=== PATIENT | male | born 1985 | race Caucasian/White ===

== ENCOUNTER 2020-10-03 15:33 | Outpatient (REF) | payer OTHER, SELFPAY ==
[2020-10-03 15:57] LABS: MANUAL DIFF FLAG NO
[2020-10-03 16:04] LABS: Basophils Absolute Auto 0.1 X10*3/uL (0.0-0.2); Basophils Percent Auto 1.1 % (0-2); Eosinophils Absolute Auto 0.1 X10*3/uL (0.0-0.4); Eosinophils Percent Auto 1.8 % (0-4); Hematocrit 43.4 % (42-52); Hemoglobin 14.7 g/dl (14.0-18.0); Imm Gran Abs Auto 0.01 X10*3/uL (0.00-0.03); Imm Gran Pct Auto 0.2 % (0.0-0.4); Lymphocytes Absolute Auto 1.6 X10*3/uL (1.2-4.9); Lymphocytes Percent Auto 35.8 % (20-40); Mean Corpuscular HGB Conc 33.9 g/dl (31.0-36.0); Mean Corpuscular Hemoglobin 33.3 pg (27.0-33.0); Mean Corpuscular Volume 98.2 fL (80-98); Mean Platelet Volume 10.8 fL (9.4-12.4); Monocytes Absolute Auto 0.5 X10*3/uL (0.1-1.2); Neutrophils Absolute Auto 2.2 X10*3/uL (2.0-8.3); Neutrophils Percent Auto 50.1 % (45-73); Platelet Count 192 X10*3/uL (160-400); Red Blood Count 4.42 X10*6/uL (4.60-5.80); Red Cell Distribution Width 12.9 % (11.0-16.0); White Blood Count 4.4 X10*3/uL (4.8-10.8)
[2020-10-03 16:26] LABS: Alanine Aminotransferase 14 U/L (0-40); Albumin Level 3.7 g/dL (3.5-5.0); Alkaline Phosphatase 68 U/L (39-117); Anion Gap 9 (12-20); Aspartate Amino Transferase 16 U/L (5-37); Bilirubin Total 0.5 mg/dL (0.0-1.0); Blood Urea Nitrogen 14 mg/dL (9-16); Calcium 8.4 mg/dL (8.4-10.2); Carbon Dioxide 32 mmol/L (22-29); Chloride 103 mmol/L (96-108); Cholesterol 168 mg/dL; Estimated Glomerular Filt Rate > 60; Glucose Fasting 82 mg/dL (60-99); HDL Cholesterol 39 mg/dL; LDL Cholesterol Calculated 111 mg/dl; Potassium 4.1 mmol/l (3.3-5.1); Sodium 140 mmol/L (135-145); Total Protein 6.7 g/dL (6.5-8.0); Triglycerides 90 mg/dL
[2020-10-03 16:44] LABS: TSH reflex Free T4 1.35 mIU/mL (0.32-4.0)
[2020-10-03 17:33] LABS: Glucose Urine UA NEG (NEG); Leukocyte Esterase Urine NEG (NEG); Nitrite Urine NEG (NEG); Specific Gravity - Urine >= 1.030 (1.005-1.025); Urine Blood NEG (NEG); Urine Ketones 5 MG/DL (NEG); Urine Protein NEG (NEG-TRACE)
[2020-10-03 17:36] LABS: Appearance Urine CLEAR; Color Urine YELLOW
== END 2020-10-03 15:34 | disposition home or self-care (01) ==
LOC: HO.LAB 15:33
PROVIDERS: PCP Internal Medicine; Visit Provider Internal Medicine
DX: Z00.00 Encounter for general adult medical examination without abnormal findings (principal); E55.9 Vitamin D deficiency, unspecified; E66.9 Obesity, unspecified; Z68.39 Body mass index [BMI] 39.0-39.9, adult
CPT/HCPCS: 36415; 80053; 80061; 81003; 84443; 85025

== ENCOUNTER 2021-09-25 15:32 | Outpatient (REF) | payer MEDICARE, MEDICAID, SELFPAY ==
[2021-09-25 15:51] LABS: MANUAL DIFF FLAG NO
[2021-09-25 16:20] LABS: Basophils Absolute Auto 0.1 X10*3/uL (0.0-0.2); Basophils Percent Auto 1.1 % (0-2); Eosinophils Absolute Auto 0.1 X10*3/uL (0.0-0.4); Eosinophils Percent Auto 2.3 % (0-4); Hematocrit 40.8 % (42.0-52.0); Imm Gran Abs Auto 0.01 X10*3/uL (0.00-0.03); Imm Gran Pct Auto 0.2 % (0.0-0.4); Lymphocytes Absolute Auto 1.5 X10*3/uL (1.2-4.9); Lymphocytes Percent Auto 34.9 % (20-40); Mean Corpuscular HGB Conc 34.3 g/dl (31.0-36.0); Mean Corpuscular Hemoglobin 33.7 pg (27.0-33.0); Mean Corpuscular Volume 98.1 fL (80.0-98.0); Mean Platelet Volume 10.8 fL (9.4-12.4); Monocytes Absolute Auto 0.4 X10*3/uL (0.1-1.2); Monocytes Percent Auto 9.8 % (2-11); Neutrophils Absolute Auto 2.3 x10*3/uL (2.0-8.3); Neutrophils Percent Auto 51.7 % (45-73); Platelet Count 182 X10*3/uL (160-400); Red Blood Count 4.16 X10*6/uL (4.60-5.80); Red Cell Distribution Width 12.8 % (11.0-16.0); White Blood Count 4.4 X10*3/uL (4.8-10.8)
[2021-09-25 16:21] LABS: Appearance Urine CLEAR; Color Urine YELLOW; Glucose Urine UA NEG (NEG); Leukocyte Esterase Urine NEG (NEG); Nitrite Urine NEG (NEG); PH 5.5 (5.0-8.0); Specific Gravity - Urine >= 1.030 (1.005-1.025); Urine Blood NEG (NEG); Urine Ketones NEG (NEG); Urine Protein NEG (NEG-TRACE)
[2021-09-25 16:42] LABS: Alanine Aminotransferase 20 U/L (0-40); Albumin Level 3.7 g/dL (3.5-5.0); Alkaline Phosphatase 71 U/L (39-117); Anion Gap 9 (12-20); Aspartate Amino Transferase 19 U/L (5-37); Bilirubin Total 0.5 mg/dL (0.0-1.0); Blood Urea Nitrogen 17 mg/dL (9-16); Calcium 8.9 mg/dL (8.4-10.2); Carbon Dioxide 32 mmol/L (22-29); Chloride 105 mmol/L (96-108); Cholesterol 175 mg/dL; Estimated Glomerular Filt Rate > 60; Glucose Random 61 mg/dL (60-115); HDL Cholesterol 45 mg/dL; LDL Cholesterol Calculated 96 mg/dl; Potassium 4.1 mmol/L (3.3-5.1); Sodium 142 mmol/L (135-145); Total Protein 6.8 g/dL (6.5-8.0); Triglycerides 170 mg/dL
[2021-09-25 17:00] LABS: Erythrocyte Sedimentation Rate 16 MM/HR (0-15)
[2021-09-25 17:01] LABS: TSH reflex Free T4 1.95 uIU/mL (0.32-4.0); Vitamin D 25-OH Total 42.4 ng/mL (>30)
[2021-09-25 18:17] LABS: Bacteria Urine TRACE /LPF; RBC Urine 0 /HPF (0); Squamous Epithelial Cell Urine TRACE /LPF; WBC Urine 0 /HPF (0-4)
== END 2021-09-25 15:33 | disposition home or self-care (01) ==
LOC: HO.LAB 15:32
PROVIDERS: PCP Internal Medicine; Visit Provider Internal Medicine
DX: Z00.00 Encounter for general adult medical examination without abnormal findings (principal); E66.9 Obesity, unspecified; E78.5 Hyperlipidemia, unspecified; E55.9 Vitamin D deficiency, unspecified
CPT/HCPCS: 36415; 80053; 80061; 81001; 82306; 84443; 85025; 85652

== ENCOUNTER 2022-02-17 12:14 | Outpatient (REF) | payer MEDICARE, MEDICAID, SELFPAY ==
--- NOTE | ~2022-02-17 | XR_ITS ---
EXAMINATION: XR FOOT, LEFT CLINICAL INFORMATION: Left foot pain. COMPARISON: 04/10/2019. TECHNIQUE: AP, lateral, and oblique views of the left foot. FINDINGS: There is no evidence of acute fracture or dislocation of the left foot. Left foot joint spaces are maintained. There is a small calcaneal plantar spur present. No erosive changes are appreciated. There is some soft tissue swelling overlying the dorsum of the tarsal bones. There also appears to be some soft tissue swelling about the first toe. XR/XR foot LT min 3V IMPRESSION: Soft tissue swelling without underlying bony abnormality appreciated. Small plantar calcaneal spur.
[2022-02-17 12:52] LABS: MANUAL DIFF FLAG NO
[2022-02-17 13:19] LABS: Basophils Absolute Auto 0.1 X10*3/uL (0.0-0.2); Basophils Percent Auto 1.2 % (0-2); Eosinophils Absolute Auto 0.1 X10*3/uL (0.0-0.4); Eosinophils Percent Auto 2.6 % (0-4); Hematocrit 41.6 % (42.0-52.0); Hemoglobin 14.4 g/dl (14.0-18.0); Imm Gran Abs Auto 0.01 X10*3/uL (0.00-0.03); Imm Gran Pct Auto 0.2 % (0.0-0.4); Lymphocytes Absolute Auto 1.6 X10*3/uL (1.2-4.9); Lymphocytes Percent Auto 37.9 % (20-40); Mean Corpuscular HGB Conc 34.6 g/dl (31.0-36.0); Mean Corpuscular Volume 95.2 fL (80.0-98.0); Mean Platelet Volume 10.6 fL (9.4-12.4); Monocytes Absolute Auto 0.4 X10*3/uL (0.1-1.2); Monocytes Percent Auto 10.5 % (2-11); Neutrophils Percent Auto 47.6 % (45-73); Platelet Count 192 X10*3/uL (160-400); Red Blood Count 4.37 X10*6/uL (4.60-5.80); Red Cell Distribution Width 12.7 % (11.0-16.0); White Blood Count 4.2 X10*3/uL (4.8-10.8)
[2022-02-17 13:39] LABS: Appearance Urine CLEAR; Color Urine YELLOW; Glucose Urine UA NEG (NEG); Leukocyte Esterase Urine NEG (NEG); Nitrite Urine NEG (NEG); PH 7.5 (5.0-8.0); Specific Gravity - Urine 1.015 (1.005-1.025); Urine Blood NEG (NEG); Urine Ketones NEG (NEG); Urine Protein NEG (NEG-TRACE)
[2022-02-17 13:50] LABS: Uric Acid 6.8 mg/dL (3.4-7.0)
[2022-02-17 14:06] LABS: Alanine Aminotransferase 17 U/L (0-40); Albumin Level 3.5 g/dL (3.5-5.0); Alkaline Phosphatase 68 U/L (39-117); Anion Gap 12 (12-20); Aspartate Amino Transferase 24 U/L (5-37); Bilirubin Total 0.6 mg/dL (0.0-1.0); Blood Urea Nitrogen 9 mg/dL (9-16); Calcium 9.1 mg/dL (8.4-10.2); Carbon Dioxide 27 mmol/L (22-29); Chloride 106 mmol/L (96-108); Cholesterol 177 mg/dL; Estimated Glomerular Filt Rate > 60; Glucose Fasting 78 mg/dL (60-99); HDL Cholesterol 39 mg/dL; LDL Cholesterol Calculated 116 mg/dl; Potassium 4.6 mmol/L (3.3-5.1); Sodium 140 mmol/L (135-145); Total Protein 7.2 g/dL (6.5-8.0); Triglycerides 111 mg/dL
[2022-02-17 14:09] LABS: TSH reflex Free T4 2.33 uIU/mL (0.32-4.0); Vitamin D 25-OH Total 30.6 ng/mL (>30)
== END 2022-02-17 12:15 | disposition home or self-care (01) ==
LOC: HO.LAB 12:14
PROVIDERS: PCP Internal Medicine; Visit Provider Nurse Practitioner Family
DX: Z00.00 Encounter for general adult medical examination without abnormal findings (principal); M79.672 Pain in left foot; E66.9 Obesity, unspecified; E78.5 Hyperlipidemia, unspecified; E55.9 Vitamin D deficiency, unspecified
CPT/HCPCS: 36415; 73630; 80053; 80061; 81003; 82306; 84443; 84550; 85025

== ENCOUNTER 2023-08-07 09:31 | Outpatient (REF) | payer MEDICARE, MEDICAID, SELFPAY ==
[2023-08-07 09:41] LABS: MANUAL DIFF FLAG NO
[2023-08-07 10:11] LABS: Basophils Absolute Auto 0.1 X10*3/uL (0.0-0.2); Basophils Percent Auto 1.3 % (0-2); Eosinophils Absolute Auto 0.1 X10*3/uL (0.0-0.4); Eosinophils Percent Auto 2.3 % (0-4); Hematocrit 43.4 % (42.0-52.0); Hemoglobin 14.7 g/dl (14.0-18.0); Imm Gran Abs Auto 0.01 X10*3/uL (0.00-0.03); Imm Gran Pct Auto 0.3 % (0.0-0.4); Lymphocytes Absolute Auto 1.2 X10*3/uL (1.2-4.9); Lymphocytes Percent Auto 31.8 % (20-40); Mean Corpuscular HGB Conc 33.9 g/dl (31.0-36.0); Mean Corpuscular Hemoglobin 32.3 pg (27.0-33.0); Mean Corpuscular Volume 95.4 fL (80.0-98.0); Mean Platelet Volume 10.5 fL (9.4-12.4); Monocytes Absolute Auto 0.4 X10*3/uL (0.1-1.2); Monocytes Percent Auto 10.7 % (2-11); Neutrophils Absolute Auto 2.1 x10*3/uL (2.0-8.3); Neutrophils Percent Auto 53.6 % (45-73); Platelet Count 199 X10*3/uL (160-400); Red Blood Count 4.55 X10*6/uL (4.60-5.80); Red Cell Distribution Width 13.1 % (11.0-16.0); White Blood Count 3.8 X10*3/uL (4.8-10.8)
[2023-08-07 10:29] LABS: Alanine Aminotransferase 12 U/L (0-40); Albumin Level 3.8 g/dL (3.5-5.0); Alkaline Phosphatase 66 U/L (39-117); Anion Gap 10 (12-20); Aspartate Amino Transferase 18 U/L (5-37); Bilirubin Total 0.8 mg/dL (0.0-1.0); Blood Urea Nitrogen 15 mg/dL (9-16); Calcium 8.9 mg/dL (8.4-10.2); Carbon Dioxide 29 mmol/L (22-29); Chloride 104 mmol/L (96-108); Cholesterol 162 mg/dL (<200); Estimated Glomerular Filt Rate > 60; Glucose Fasting 91 mg/dL (60-99); HDL Cholesterol 43 mg/dL (>40); LDL Cholesterol Calculated 104 mg/dL (<100); Sodium 139 mmol/L (135-145); Total Protein 7.3 g/dL (6.5-8.0); Triglycerides 79 mg/dL (<150)
[2023-08-07 10:46] LABS: Vitamin D 25-OH Total 29.7 ng/mL (>30)
[2023-08-07 11:19] LABS: Appearance Urine Clear; Color Urine Yellow; Glucose Urine UA Negative (Negative); Leukocyte Esterase Urine Negative (Negative); Nitrite Urine Negative (Negative); Specific Gravity - Urine 1.015 (1.005-1.025); Urine Blood Negative (Negative); Urine Ketones Negative (Negative); Urine Protein Negative (Neg-Trace)
== END 2023-08-07 09:32 | disposition home or self-care (01) ==
LOC: HO.LAB 09:31
PROVIDERS: PCP Internal Medicine; Visit Provider Internal Medicine
DX: Z00.00 Encounter for general adult medical examination without abnormal findings (principal); E78.00 Pure hypercholesterolemia, unspecified; E66.9 Obesity, unspecified; R30.0 Dysuria; E55.9 Vitamin D deficiency, unspecified
CPT/HCPCS: 36415; 80053; 80061; 81003; 82306; 84443; 85025

== ENCOUNTER 2023-08-23 15:23 | Outpatient (AMB) | payer MEDICARE, MEDICAID, SELFPAY ==
--- NOTE | 2023-08-23 15:25 | MHC.PC.OV ---
Vital Signs 08/23/23 15:26 Height 5 ft Weight 164 lb BMI 32.0 BP 118/80 Blood Pressure Location Lt brachial Position Sitting Pulse Source Pulse Oximeter Oxygen Delivery Method Room Air Intake Visit Reasons: discuss anxiety Perianesthesia Manager Required: No Accompanied by: Self / Same As Patient Allergies No Known Allergies Allergy (Mild, Verified 07/25/24 17:22) NKA Medication List - Last Reconciled 08/23/23 by Royal Kearney MD diclofenac sodium 1% (Voltaren Arthritis Pain) 2 grams topical QID ibuprofen 600 mg PO Q6H PRN Tobacco use date assessed: 08/23/23 Dental Screening Dental Screen Date: 08/23/23 Did you have a dental visit in the last 12 months?: Yes Did you have a dental problem in the last 6 months where you did not have access to dental care?: No Was dental information given to patient?: Patient has dentist HPI discuss anxiety HPI Details Patient is brought in today by his mother for evaluation of his recent abdominal complaints Patient has reportedly been complaining of recurrent abdominal pain for the past few weeks He is unable to quantify his symptoms further although he keeps referring to his gallbladder, which his mother states he had removed years ago (at age 23) His mother states that he moves his bowels regularly so constipation is unlikely Patient is unable to clarify whether his symptoms are constant or intermittent and cannot elaborate as to whether there is anything he does, eats or drinks that either aggravate his symptoms or relieve his symptoms due to cognitive defects associated with his Down's syndrome His mother also feels that his anxiety seems to be acting up again lately and is wondering if his symptoms may be primarily due to his anxiety He used to take Sertraline and was doing well on Rx in the past but stopped taking them about 2 to 3 years ago when he felt that his anxiety was very well-controlled then He denies any nausea or vomiting Denies any fever, chest pains or SOB PFSH Medical History (Updated 07/26/24 @ 04:12 by Royal Kearney MD) Obesity (BMI 30-39.9) Anxiety Vitamin D deficiency Dyslipidemia Down's syndrome Surgical History H/O: knee surgery History of cholecystectomy Family History Father Medical history unknown Mother Colon cancer, Onset Age: 45 Social History Housing: House Alcohol intake: never Patient Tobacco Use Status: Never used Tobacco e-Cigarette/Vaping Use: Never Used Second Hand Smoke Exposure: No service: No Current occupational status: disabled Cognitive needs: Yes Hearing needs: No Vision needs: No Questionnaire PHQ-9 Over the last 2 weeks, how often have you been bothered by any of the following problems? 1. Little interest or pleasure in doing things: not at all 2. Feeling down, depressed, or hopeless: not at all 3. Trouble falling or staying asleep, or sleeping too much: not at all 4. Feeling tired or having little energy: not at all 5. Poor appetite or overeating: not at all 6. Feeling bad about yourself - or that you are a failure or have let yourself or your family down: not at all 7. Trouble concentrating on things, such as reading the newspaper or watching television: not at all 8. Moving or speaking so slowly that other people could have noticed. Or the opposite - being so fidgety or restless that you have been moving around a lot more than usual: not at all 9. Thoughts that you would be better off or of hurting yourself in some way: not at all Total score: 0 Depression Screening Interpretation: Negative Depression Screening Done: Yes 58014 - PHQ-9 Billing: Yes Source: Developed by Drs. Naun Ray, Katalina Nicole, Anup Franco and colleagues, with an educational jose from [employer]. Thrive Questionnaire Date Thrive assessed: 08/23/23 I am a: Patient What is your living situation today?: I have a steady place to live Within the past 12 months, did the food you bought not last and you didn't have the money to get more?: Never true Within the past 12 months, did you worry whether your food would run out before you got money to buy more?: Never true Do you have trouble paying for medicines?: No Do you have trouble getting transportation to medical appointments?: No Do you have trouble paying your heating and electricity bill?: No Do you have trouble taking care of your child, family member or friend?: No Do you have trouble with day-to-day activities such as bathing, preparing meals, shopping, managing finances, etc.?: No Are you currently unemployed and looking for a job?: No Are you interested in more education?: No Please select the resources that you would like help with: None Currently or been in a relationship where the following occur: no concerns reported AUDIT C Alcohol Use Questionnaire (AUDIT-C) 1. How often do you have a drink containing alcohol?: Never 2. How many drinks containing alcohol do you have on a typical day when you are drinking?: 1 or 2 (0) 3. How often do you have six or more drinks on one occasion?: Never Total Score: 0 Score Reviewed/Action Taken: Yes COLEEN-7 AMB Questionnaire COLEEN-7 Date COLEEN - 7 assessed: 08/23/23 Feeling nervous, anxious, or on edge: 0 = Not at all Not being able to stop or control worryin = Not at all Worrying too much about different things: 0 = Not at all Trouble relaxin = Not at all Being so restless that it is hard to sit still: 0 = Not at all Becoming easily annoyed or irritable: 0 = Not at all Feeling afraid as if something awful might happen: 0 = Not at all Total COLEEN-7 score (0-4 normal; 5-9 mild; 10-14 moderate; 15-21 severe): 0 Source: Developed by Drs. Naun Ray, Katalina Nicole, Anup Franco and colleagues, with an educational jose from [employer]. Review of Systems Const Denies chills, Denies fatigue, Denies fever(s) and Denies headache(s) ENT Denies dysphagia, Denies dizziness, Denies otalgia, Denies headache(s), Denies neck pain, Denies odynophagia and Denies sore throat Card Denies chest pain, Denies palpitations and Denies dyspnea Resp Denies chest congestion, Denies cough and Denies dyspnea GI Reports abdominal pain (on and off, per patient - he points to the RUQ and epigastric areas ), Denies constipation, Denies dysphagia, Denies heartburn, Denies diarrhea, Denies nausea, Denies odynophagia and Denies vomiting Denies dysuria, Denies nocturia and Denies urinary frequency Musc Denies back pain and Denies neck pain Neuro Denies dizziness and Denies headache(s) Psych Reports anxiety (increasing, per patient's mother) Endo Denies fatigue and Denies palpitations Physical exam (Primary Care) Vital Signs: Last Vital Signs BP 118/80 08/23/23 15:26 Oxygen Delivery Method Room Air 08/23/23 15:26 BMI result Body Mass Index 32.0 Tobacco/Smoking Status: Tobacco use Status Tobacco use date assessed 08/23/23 08/23/23 15:29 Patient Tobacco Use Status Never used Tobacco 08/23/23 15:29 PHQ-9: PHQ-9 Score PHQ-9: Total score 0 08/23/23 15:51 Depression Screening Interpretation: Negative Thrive Assessment: Date of Thrive Assessment Date Thrive assessed 08/23/23 08/23/23 15:29 Currently or been in a relationship where the following occur: no concerns reported Const General: no acute distress and alert HENMT Throat: Yes posterior oropharynx normal and Yes tonsils normal (no TP congestion) Neck Neck: Yes no lymphadenopathy and Yes supple Thyroid: Thyroid normal Resp Auscultation: clear to auscultation bilaterally, no rales and no wheezes Cardio Rate: regular rate Rhythm: regular rhythm Heart sounds: no murmurs GI Palpation (GI): Soft to palpation, nontender, no guarding, not rigid and No Rebound tenderness present Auscultation: normal bowel sounds General: Yes no CVA tenderness Back/Spine/Pelvis Back: no CVA tenderness Thoracic/Lumbar Spine: No lumbar spinal tenderness Skin Rashes: no rashes Extrem General: Yes no clubbing, cyanosis or edema Coding Level of Care Code Est Pt Level 3 (60067) Diagnoses Epigastric pain R10.13 Abdominal location: epigastric Anxiety F41.9
[2023-08-23 15:26] VITALS: BP 118/80; BMI 32.0
== END 2023-08-23 15:52 | disposition home or self-care (01) ==
PROVIDERS: PCP Internal Medicine; Visit Provider Internal Medicine
DX: R10.13 Epigastric pain (principal); F41.9 Anxiety disorder, unspecified
CPT/HCPCS: 99213

== ENCOUNTER 2023-08-23 15:56 | Outpatient (REF) | payer MEDICARE, MEDICAID, SELFPAY ==
--- NOTE | ~2023-08-23 | XR_ITS ---
EXAMINATION: XR ABDOMEN COMPLETE CLINICAL INDICATION: Unspecified abdominal pain. COMPARISON: CT abdomen and pelvis 12/24/2014. TECHNIQUE: 4 AP views, supine and upright, of the abdomen. Visualization limited due to body habitus. FINDINGS: Dextroscoliosis of the lumbar spine with degenerative changes. Surgical clips in the right upper quadrant of the abdomen. [id number]-[id number] amount of stool in the colon. Nonobstructive bowel gas pattern. No free intraperitoneal air appreciated. Grouped calcifications, largest 7 mm, in the left mid to lower abdomen, possibly overlying the lower pole of the left kidney on some images versus possibly extrarenal on other images. Limited visualization of the kidneys due to overlying bowel. XR/XR abdomen 3V IMPRESSION: Bdvgcojv-cl-[id number] amount of stool in the colon. Nonobstructive bowel gas pattern. Grouped calcifications, largest 7 mm, in the left mid to lower abdomen, possibly overlying the lower pole of the left kidney on some images versus possibly extrarenal on other images. CT scan could be considered for better visualization.
== END 2023-08-23 15:57 | disposition home or self-care (01) ==
LOC: HO.XRAY 15:56
PROVIDERS: PCP Internal Medicine; Visit Provider Internal Medicine
DX: R10.9 Unspecified abdominal pain (principal)
CPT/HCPCS: 74021

== ENCOUNTER 2023-09-04 14:39 | Emergency (ER) | payer MEDICARE, MEDICAID, SELFPAY ==
[2023-09-04] VITALS (9 sets, daily range): BP systolic 87–116; BP diastolic 37–73; PULSE 67–103; RESP 20; O2SAT 96–100; BMI 28.7
--- NOTE | ~2023-09-04 | XR_ITS ---
EXAMINATION: XR CHEST CLINICAL INFORMATION: Weakness COMPARISON: None available. TECHNIQUE: Frontal view of the chest was obtained. FINDINGS: The cardiac silhouette is normal. There is mild diffuse bronchial wall thickening. There are no areas of consolidation. There are no pleural effusions or pneumothoraces. The bones and soft tissues are unremarkable for the patient's age. XR/XR chest 1V IMPRESSION: Bronchial wall thickening may be infectious and/or inflammatory in etiology.
--- NOTE | ~2023-09-04 | CT_ITS ---
EXAMINATION: CT ABDOMEN AND PELVIS WITH CONTRAST CLINICAL INFORMATION: Lower abdomen pain COMPARISON: Selected portions of a previous CT 12/24/14 TECHNIQUE: Multidetector volumetric images were obtained from the superior aspect of the liver through the pubic symphysis following administration 85 mL of Omnipaque 350 intravenous contrast. Sagittal and coronal reformatted images were obtained on the technologist's workstation. Oral contrast: No This CT examination was performed using dose optimization techniques as appropriate, variously including the following: *Automated exposure control *Adjustment of mA and/or kV according to patient size (this includes techniques or standardized protocols for targeted exams where dose is matched to indication/reason for exam; i.e. extremities or head) *Use of iterative reconstruction technique DLP: 588 mGy-cm FINDINGS: LUNG BASES: There is motion artifact. No consolidation or edema. LIVER, GALLBLADDER, AND BILIARY TREE: No suspicious focal liver lesion. There are surgical clips in the expected region of the gallbladder. There is no biliary dilation. PANCREAS: No suspicious abnormality. SPLEEN: Within normal limits ADRENAL GLANDS: No suspicious abnormality KIDNEYS AND URETERS: There is no dilation of the intrarenal collecting system. The nephrograms are symmetric. There is no suspicious mass. BLADDER: The bladder is not well-distended. The bladder wall is thickened. GASTROINTESTINAL TRACT: There is quaa-we-tvfmjegw thickening and minimal indistinctness involving the wall of the rectum. Some additional segments of the colon are either thickened or not well distended. There is no definite pneumatosis. No abscess. The stomach is moderately distended. No evidence of high-grade small bowel obstruction. ABDOMINAL WALL: No significant hernia is appreciated. LYMPH NODES: There are no measurably enlarged abdominal or pelvic lymph nodes. VASCULAR: There is no abdominal aortic aneurysm. The portal vein enhances. PELVIC VISCERA: The seminal vesicles are distended. Equivocal slight surrounding stranding. OSSEOUS STRUCTURES: No suspicious focal lesion CT/CT abdomen pelvis w IV con IMPRESSION: There is thickening in the wall of the rectum. Other segments of the colon are not well distended and wall thickening could also be present. There is no abscess or free intraperitoneal gas. No evidence of high-grade bowel obstruction. Pattern could reflect colitis or proctitis. The bladder wall is thickened. There is some distention and mild stranding surrounding the seminal vesicles. Only a few coronal images from 12/24/14 are available for comparison. Fleischner guidelines were followed.
[2023-09-04 15:25] LABS: MANUAL DIFF FLAG NO
[2023-09-04] MEDS: 0.9 % Sodium Chloride 1,000 ML 999 ML IV ×3 (15:25→19:19)
[2023-09-04 15:26] LABS: Basophils Absolute Auto 0.1 X10*3/uL (0.0-0.2); Basophils Percent Auto 0.8 % (0-2); Eosinophils Percent Auto 0.5 % (0-4); Hematocrit 44.4 % (42.0-52.0); Hemoglobin 15.3 g/dl (14.0-18.0); Imm Gran Abs Auto 0.05 X10*3/uL (0.00-0.03); Imm Gran Pct Auto 0.7 % (0.0-0.4); Lymphocytes Absolute Auto 1.4 X10*3/uL (1.2-4.9); Lymphocytes Percent Auto 18.7 % (20-40); Mean Corpuscular HGB Conc 34.5 g/dl (31.0-36.0); Mean Corpuscular Hemoglobin 32.8 pg (27.0-33.0); Mean Corpuscular Volume 95.1 fL (80.0-98.0); Mean Platelet Volume 10.3 fL (9.4-12.4); Monocytes Absolute Auto 0.5 X10*3/uL (0.1-1.2); Monocytes Percent Auto 6.7 % (2-11); Neutrophils Absolute Auto 5.4 x10*3/uL (2.0-8.3); Neutrophils Percent Auto 72.6 % (45-73); Platelet Count 188 X10*3/uL (160-400); Red Blood Count 4.67 X10*6/uL (4.60-5.80); White Blood Count 7.4 X10*3/uL (4.8-10.8)
[2023-09-04 16:14] LABS: Anion Gap 12 (12-20); Blood Urea Nitrogen 15 mg/dL (9-16); Calcium 8.6 mg/dL (8.4-10.2); Carbon Dioxide 28 mmol/L (22-29); Chloride 104 mmol/L (96-108); Creatinine Clr Calc Pharmacy 66.2; Estimated Glomerular Filt Rate 59; Glucose Random 146 mg/dL (60-115); Potassium 4.2 mmol/L (3.3-5.1); Sodium 140 mmol/L (135-145)
--- NOTE | 2023-09-04 16:16 | ECG_ITS ---
Test Reason : SYNCOPE Blood Pressure : / mmHG Vent. Rate : 076 BPM Atrial Rate : 076 BPM P-R Int : 132 ms QRS Dur : 094 ms QT Int : 384 ms P-R-T Axes : 049 020 032 degrees QTc Int : 432 ms Normal sinus rhythm Normal ECG When compared with ECG of 24-DEC-2014 14:03, No significant change was found Referred By: Spenser Lazcano Electronically Signed By:CLAU OSORIO MD
--- NOTE | 2023-09-04 16:40 | ED.GENADULT ---
HPI - General Adult General Chief complaint: Syncope Stated complaint: PASSED OUT 3X TODAY Time Seen by Provider: 09/04/23 16:02 Source: patient and family Mode of arrival: EMS History of Present Illness HPI narrative: Pt is a 37yo male with Down Syndrome who presents to the ED accompanied by his mother after syncopizing twice while on the toilet. Pt is a poor historian but mother appears reliable. Pt states he was sitting on the toilet straining trying to have a BM when he syncopized. Mother states she saw him fall over onto the sink next to him twice. Denies head strike or LOC. Pt complains of lower abdominal pain and questionable burning with urination. Notes a headache earlier that has since resolved. Denies n/v/d or constipation, SOB, or cp. Of note, the patient was seen by his PCP 2 weeks ago for abdominal pain, get an x-ray that showed moderate to large constipation. Related Data Previous Rx's Medication Instructions Recorded ibuprofen 600 mg tablet 600 mg PO Q6H PRN pain #20 tabs 03/05/22 diclofenac sodium 1 % topical gel 2 g topical QID #100 grams 03/16/22 (Voltaren Arthritis Pain) famotidine-Ca carb-mag hydrox 10 1 tab PO BID PRN abdominal pain 08/23/23 mg-800 mg-165 mg chewable tablet #60 tabs sertraline 20 mg/mL oral 40 mg (2 mL) PO DAILY 30 days #60 08/23/23 concentrate mL Allergies Allergy/AdvReac Type Severity Reaction Status Date / Time No Known Allergies Allergy Mild NKA Verified 09/04/23 15:11 Review of Systems Constitutional: Constitutional: Denies chills, Denies fever(s) and Denies headache(s) Eyes: Eyes: Denies change in vision and Reports eye discharge (runny eyes) ENT: Denies dizziness and Denies headache(s) Cardiovascular: Cardiovascular: Denies chest pain, Reports syncope (x2) and Denies dyspnea Respiratory: Respiratory: Denies cough and Denies dyspnea Gastrointestinal: Gastrointestinal: Reports abdominal pain, Denies constipation, Denies diarrhea, Denies nausea and Denies vomiting Genitourinary: Genitourinary: Reports difficulty urinating and Reports dysuria Neurologic: Denies dizziness, Reports syncope (x2) and Denies headache(s) [facility] Past Medical History Medical History Anxiety Down's syndrome Dyslipidemia Vitamin D deficiency Surgical History H/O: knee surgery History of cholecystectomy Family History Family History Father Medical history unknown Mother Colon cancer Social History Social History Housing: House Alcohol intake: never Patient Tobacco Use Status: Never used Tobacco Smoked in Last 30 Days: No Second Hand Smoke Exposure: No Use of substances other than those prescribed or required for medical reasons: No Advance Directives: No Advance Directives Information Provided: No service: No Current occupational status: disabled Cognitive needs: Yes Hearing needs: No Vision needs: No Physical Exam ED Vital Signs: Vital Signs - 24 hr 09/04/23 15:07 09/04/23 15:13 09/04/23 15:14 Pulse Rate 69 Respiratory Rate 20 Blood Pressure 88/37 L 87/45 L 88/37 L Pulse Oximetry 100 Oxygen Delivery Method Room Air 09/04/23 15:26 09/04/23 16:33 09/04/23 18:08 Pulse Rate 80 93 Respiratory Rate 20 Blood Pressure 87/51 L 109/47 L Pulse Oximetry 98 100 Oxygen Delivery Method Room Air Room Air 09/04/23 18:10 09/04/23 18:11 09/04/23 18:14 Pulse Rate 96 103 H 97 Respiratory Rate 20 Blood Pressure 116/73 98/58 L 98/58 L Pulse Oximetry 99 Oxygen Delivery Method Room Air BMI result Body Mass Index 28.7 Const General: cooperative, comfortable, no acute distress, alert and awake Orientation/consciousness: patient oriented x3 Limitations: other limitations (pt has down syndrome and is a poor historian) HENMT Head: Yes normal to inspection and Yes atraumatic Ears: hearing grossly normal bilaterally General nose exam: Normal external nose present Eyes General: appearance normal, both eyes and all related structures (tearing noted in both eyes) Eyelids: Yes eyelids normal Conjunctivae: conjunctivae normal Pupils: Equal, round and reactive pupils present Resp Effort & Inspection: normal respiratory effort, able to speak in complete sentences, no cough, not labored, no respiratory distress and no use of accessory muscles Auscultation: clear to auscultation bilaterally Cardio Rate: regular rate Rhythm: regular rhythm Heart sounds: S1 normal heart sound present and S2 normal heart sound present GI Inspection: Yes normal to inspection Palpation (GI): Soft to palpation and Tenderness to palpation present (GI) (tenderness most severe in suprapubic region) in the LLQ and suprapubicly Auscultation: Hypoactive bowel sounds present Neuro General: patient oriented x3, moves all extremities and no focal motor deficits Cranial nerves: Yes Equal, round and reactive pupils present Motor exam (neuro): 5/5 motor strength present throughout Course Reevaluation(s) Reevaluation #1: The patient's workup large unremarkable exception of orthostatics after 2 L of normal saline. Patient's blood pressure still slightly hypotensive to low normal. Will give 1 additional L of fluid and then do ambulation trial. Patient's CT scan shows questionable constipation but no other concerning abnormalities. His UA does not show any signs of UTI Time: 19:07 Reevaluation #2: Patient's most recent blood pressure 116/74, reports feeling much better, he is stable for discharge. Time: 20:11 Medications Administered Generic Name Dose Route Start Last Admin Trade Name Freq PRN Reason Stop Dose Admin Sodium Chloride 1,000 mls @ 999 mls/hr 09/04/23 19:15 09/04/23 19:19 Ns IV 09/04/23 20:15 999 mls/hr .Q1H1M RANDY Administration Discontinued Medications Generic Name Dose Route Start Last Admin Trade Name Freq PRN Reason Stop Dose Admin Sodium Chloride 1,000 mls @ 999 mls/hr 09/04/23 15:15 09/04/23 16:32 Ns IV 09/04/23 16:15 Infused .Q1H1M RANDY Infusion Sodium Chloride 1,000 mls @ 999 mls/hr 09/04/23 16:30 09/04/23 18:29 Ns IV 09/04/23 17:30 Infused .Q1H1M RANDY Infusion Iohexol 85 ml 09/04/23 17:00 09/04/23 17:00 Iohexol 350 Mg/Ml 100 Ml Infus..Btl IV 09/04/23 17:01 85 ml ONCE ONE Administration Medical Decision Making Medical Decision Making MDM Narrative: 37-year-old male past medical history significant for Down syndrome presents for evaluation after 2 syncopal episodes while on the toilet. Initially concerning for vasovagal syncope, however the patient was found to be hypotensive most recently 87/51. There has been no vomiting, diarrhea or reported decreased appetite. He has already received 1 L of IV fluid, a 2 L was ordered. His only complaint is lower abdominal pain, UA, CT scan of pelvis. Given the significant hypotension with syncopal episode will get a chest x-ray. Troponin pending. EKG is nonischemic. Differential Diagnosis Differential Diagnoses: The differential diagnosis associated with the presentation includes (vasovagal syncope, orthostatic hypotension, community aquired pna, uti, constipation) Admission/Observation Consideration of admission/observation: Escalation of care including admission/observation considered Multiple syncopal episodes with hypotension Lab Data MDM Lab Attestation statement: I reviewed the patient's lab results. No leukocytosis or anemia, normal platelet count. No electrolyte abnormalities, normal renal function. 09/04/23 15:20 09/04/23 15:46 Labs: Lab Results 09/04/23 09/04/23 09/04/23 Range/Units 15:20 15:46 16:28 WBC 7.4 (4.8-10.8) X10*3/uL RBC 4.67 (4.60-5.80) X10*6/uL Hgb 15.3 (14.0-18.0) g/dl Hct 44.4 (42.0-52.0) % MCV 95.1 (80.0-98.0) fL MCH 32.8 (27.0-33.0) pg MCHC 34.5 (31.0-36.0) g/dl RDW 13.0 (11.0-16.0) % Plt Count 188 (160-400) X10*3/uL MPV 10.3 (9.4-12.4) fL Immature Gran % (Auto) 0.7 H (0.0-0.4) % Neut % (Auto) 72.6 (45-73) % Lymph % (Auto) 18.7 L (20-40) % Hughes % (Auto) 6.7 (2-11) % Eos % (Auto) 0.5 (0-4) % Baso % (Auto) 0.8 (0-2) % Lymph # (Auto) 1.4 (1.2-4.9) X10*3/uL Hughes # (Auto) 0.5 (0.1-1.2) X10*3/uL Eos # (Auto) 0.0 (0.0-0.4) X10*3/uL Baso # (Auto) 0.1 (0.0-0.2) X10*3/uL Abs Immat Gran (auto) 0.05 H (0.00-0.03) X10*3/uL Absolute Neuts (auto) 5.4 (2.0-8.3) x10*3/uL Absolute Nucleated RBC 0.000 (0.0-0.012) X10*3/uL Nucleated RBC % (auto) 0.0 (0.0-0.2) /100WBC Sodium 140 (135-145) mmol/L Potassium 4.2 (3.3-5.1) mmol/L Chloride 104 (96-108) mmol/L Carbon Dioxide 28 (22-29) mmol/L Anion Gap 12 (12-20) BUN 15 (9-16) mg/dL Creatinine 1.36 (0.5-1.4) mg/dL Estim Creat Clear Calc 66.2 Estimated GFR 59 Random Glucose 146 H (60-115) mg/dL Calcium 8.6 (8.4-10.2) mg/dL Total Bilirubin 0.7 (0.0-1.0) mg/dL Direct Bilirubin 0.2 (0.0-0.5) mg/dL AST 20 (5-37) U/L ALT 16 (0-40) U/L Alkaline Phosphatase 71 (39-117) U/L Troponin I High Sens < 2.7 (<3.5-35.0) ng/L Total Protein 6.8 (6.5-8.0) g/dL Albumin 3.5 (3.5-5.0) g/dL Lipase 21 (8-78) U/L Urine Color Urine Appearance Urine pH (5.0-9.0) Ur Specific [place] (1.005-1.025) Urine Protein (Neg-Trace) mg/dL Urine Glucose (UA) (Negative) mg/dL Urine Ketones (Negative) mg/dL Urine Blood (Negative) Urine Nitrite (Negative) Ur Leukocyte Esterase (Negative) Urine RBC (0-2) /HPF Urine WBC (0-5) /HPF Ur Squamous Epith Cells (0-2) /HPF Urine Bacteria (None Seen) Hyaline Casts (0-2) /LPF 09/04/23 Range/Units 18:16 WBC (4.8-10.8) X10*3/uL RBC (4.60-5.80) X10*6/uL Hgb (14.0-18.0) g/dl Hct (42.0-52.0) % MCV (80.0-98.0) fL MCH (27.0-33.0) pg MCHC (31.0-36.0) g/dl RDW (11.0-16.0) % Plt Count (160-400) X10*3/uL MPV (9.4-12.4) fL Immature Gran % (Auto) (0.0-0.4) % Neut % (Auto) (45-73) % Lymph % (Auto) (20-40) % Hughes % (Auto) (2-11) % Eos % (Auto) (0-4) % Baso % (Auto) (0-2) % Lymph # (Auto) (1.2-4.9) X10*3/uL Hughes # (Auto) (0.1-1.2) X10*3/uL Eos # (Auto) (0.0-0.4) X10*3/uL Baso # (Auto) (0.0-0.2) X10*3/uL Abs Immat Gran (auto) (0.00-0.03) X10*3/uL Absolute Neuts (auto) (2.0-8.3) x10*3/uL Absolute Nucleated RBC (0.0-0.012) X10*3/uL Nucleated RBC % (auto) (0.0-0.2) /100WBC Sodium (135-145) mmol/L Potassium (3.3-5.1) mmol/L Chloride (96-108) mmol/L Carbon Dioxide (22-29) mmol/L Anion Gap (12-20) BUN (9-16) mg/dL Creatinine (0.5-1.4) mg/dL Estim Creat Clear Calc Estimated GFR Random Glucose (60-115) mg/dL Calcium (8.4-10.2) mg/dL Total Bilirubin (0.0-1.0) mg/dL Direct Bilirubin (0.0-0.5) mg/dL AST (5-37) U/L ALT (0-40) U/L Alkaline Phosphatase (39-117) U/L Troponin I High Sens (<3.5-35.0) ng/L Total Protein (6.5-8.0) g/dL Albumin (3.5-5.0) g/dL Lipase (8-78) U/L Urine Color Yellow Urine Appearance Clear Urine pH 6.5 (5.0-9.0) Ur Specific [place] 1.010 (1.005-1.025) Urine Protein Negative (Neg-Trace) mg/dL Urine Glucose (UA) Negative (Negative) mg/dL Urine Ketones Negative (Negative) mg/dL Urine Blood Moderate (2+) H (Negative) Urine Nitrite Negative (Negative) Ur Leukocyte Esterase Negative (Negative) Urine RBC 11-20 H (0-2) /HPF Urine WBC 0-5 (0-5) /HPF Ur Squamous Epith Cells 0-2 (0-2) /HPF Urine Bacteria None Seen (None Seen) Hyaline Casts 0-2 (0-2) /LPF Independent Interpretation I performed an independent interpretation of an: EKG (Normal sinus rhythm with a rate of 76 beats per minute. No ischemic changes) Discharge Plan Discharge Clinical Impression: Syncope, Hypotension Patient Disposition: Home, Self-Care Instructions: Hypotension (ED) Additional Instructions: Jeffery's work up in the ER is reassuring. He appeared to be somewhat dehydrated leading to his episode of fainting Make sure he stays well hydrated His CT scan showed only constipation I recommend using MiraLax only and no laxatives as this may cause persistent diarrhea Follow-up with his primary doctor Prescriptions: No Action ibuprofen 600 mg tablet 600 mg PO Q6H PRN (Reason: pain) Qty: 20 0RF diclofenac sodium [Voltaren Arthritis Pain] 1 % gel 2 g topical QID Qty: 100 0RF Rx Instructions: apply to single elbow, wrist or hand; for hand includes palm/fingers/back of hand sertraline 20 mg/mL concentrate 40 mg PO DAILY 30 Days Qty: 60 5RF famotidine-Ca carb-mag hydrox 10-800-165 mg tablet,chewable 1 tab PO BID PRN (Reason: abdominal pain) Qty: 60 3RF
[2023-09-04 16:59] LABS: Troponin-I High Sensitivity < 2.7 ng/L (<3.5-35.0)
[2023-09-04] MEDS: iohexoL 350 MG/ML 100 ML INFUS..BTL 85 ML IV (17:00)
[2023-09-04 18:24] LABS: Alanine Aminotransferase 16 U/L (0-40); Albumin Level 3.5 g/dL (3.5-5.0); Alkaline Phosphatase 71 U/L (39-117); Aspartate Amino Transferase 20 U/L (5-37); Bilirubin Direct 0.2 mg/dL (0.0-0.5); Bilirubin Total 0.7 mg/dL (0.0-1.0); Lipase 21 U/L (8-78); Total Protein 6.8 g/dL (6.5-8.0)
[2023-09-04 18:28] LABS: Appearance Urine Clear; Color Urine Yellow; Glucose Urine UA Negative (Negative); Leukocyte Esterase Urine Negative (Negative); Nitrite Urine Negative (Negative); PH 6.5 (5.0-9.0); UMIC TRIGGER UACC YES; Urine Blood Moderate (2+) (Negative); Urine Ketones Negative (Negative); Urine Protein Negative (Neg-Trace)
[2023-09-04 18:31] LABS: Bacteria Urine None Seen (None Seen); Hyaline Casts Urine 0-2 /LPF (0-2); Squamous Epithelial Cell Urine 0-2 /HPF (0-2); WBC Urine 0-5 /HPF (0-5)
== END 2023-09-04 20:35 | disposition home or self-care (01) ==
PROVIDERS: Physician Assistant; Emergency Provider Internal Medicine; PCP Internal Medicine
DX: R55 Syncope and collapse (principal); I95.9 Hypotension, unspecified; K59.00 Constipation, unspecified; E78.5 Hyperlipidemia, unspecified; Q90.9 Down syndrome, unspecified
CPT/HCPCS: 36415; 71045; 74177; 80048; 80076; 81001; 83690; 84484; 85025; 93005; 96360; 96361; 99285; Q9967

== ENCOUNTER → 2023-09-04 16:16 | Outpatient (BNV) | payer MEDICARE, MEDICAID, SELFPAY | PROVIDERS: Emergency Provider Internal Medicine; PCP Internal Medicine; Visit Provider Internal Medicine Cardiovascular Disease | DX: R55 Syncope and collapse (principal) | CPT/HCPCS: 93010 ==

== ENCOUNTER 2024-02-01 17:03 | Outpatient (AMB) | payer MEDICARE, MEDICAID, SELFPAY ==
--- NOTE | 2024-02-01 17:09 | A.OFFPC_ITS ---
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 Accompanied by: Mother Allergies No Known Allergies Allergy (Mild, Verified 02/01/24 17:37) NKA Medication List - Last Reconciled 02/01/24 by Royal Kearney MD diclofenac sodium 1% (Voltaren Arthritis Pain) 2 grams topical QID famotidine-Ca carb-mag hydrox 10-800-165 mg 1 tab PO BID PRN ibuprofen 600 mg PO Q6H PRN sertraline 40 mg (2 mL) PO DAILY 30 days Tobacco use date assessed: 02/01/24 Dental Screening Dental Screen Date: 02/01/24 Did you have a dental visit in the last 12 months?: Yes Did you have a dental problem in the last 6 months where you did not have access to dental care?: No Was dental information given to patient?: Patient has dentist HPI physical HPI Details Patient comes in today for his annual physical examination - is accompanied as usual by his mother, who is his HCP Patient states that he feels okay but his mother states that he has been all over the place with regards to his anxiety and is wondering if his Sertraline dosage can be raised further Patient also reportedly had a few syncopal episodes one day back in September 2023 and he was brought to the ER for further evaluation where his work ups all came back normal and he was determined at the time to just be dehydrated He was reportedly given a total of 3 L of IV fluids before all of his symptoms subsided and he stabilized His mother states that since then, she has made it a point to keep reminding patient to drink his oral fluids as much as he can and patient has not had any recurrence of his symptoms - he denies any headaches or dizziness Denies any chest pains, no SOB No nausea/vomiting, no abdominal pain No change in bowel habits noted He denies any acute urinary symptoms His mother is also inquiring if patient can do Cologuard testing instead of a regular colonoscopy - states that with his condition and his inability to swallow tablets, he is not going to be able to do the required colonoscopy prep properly States that she has a personal history of colon cancer that was diagnosed at 44 yrs of age and is aware that this increases her son's risks for colon cancer and that he should then start screening at a much earlier age than recommended He has not been able to get his labs done yet - states that they plan to have him get these done this coming weekend [facility] Medical History (Updated 02/01/24 @ 19:16 by Royal Kearney MD) Overweight (BMI 25.0-29.9) Anxiety Vitamin D deficiency Dyslipidemia Down's syndrome Surgical History H/O: knee surgery History of cholecystectomy Family History (Updated 02/01/24 @ 19:10 by Royal Kearney MD) Father Medical history unknown Mother Colon cancer, Onset Age: 45 Social History Housing: House Alcohol intake: never Patient Tobacco Use Status: Never used Tobacco e-Cigarette/Vaping Use: Never Used Second Hand Smoke Exposure: No service: No Current occupational status: disabled Cognitive needs: Yes Hearing needs: No Vision needs: No Questionnaire PHQ-9 Over the last 2 weeks, how often have you been bothered by any of the following problems? 1. Little interest or pleasure in doing things: not at all 2. Feeling down, depressed, or hopeless: not at all 3. Trouble falling or staying asleep, or sleeping too much: not at all 4. Feeling tired or having little energy: not at all 5. Poor appetite or overeating: not at all 6. Feeling bad about yourself - or that you are a failure or have let yourself or your family down: not at all 7. Trouble concentrating on things, such as reading the newspaper or watching television: not at all 8. Moving or speaking so slowly that other people could have noticed. Or the opposite - being so fidgety or restless that you have been moving around a lot more than usual: not at all 9. Thoughts that you would be better off or of hurting yourself in some way: not at all Total score: 0 Depression Screening Interpretation: Negative Depression Screening Done: Yes [id number] - PHQ-9 Billing: Yes Source: Developed by Drs. Naun Ray, Katalina B.WAnup Calloway and colleagues, with an educational jose from [employer]. Thrive Questionnaire Date Thrive assessed: 02/01/24 I am a: Parent/Caregiver What is your living situation today?: I have a steady place to live Within the past 12 months, did the food you bought not last and you didn't have the money to get more?: Never true Within the past 12 months, did you worry whether your food would run out before you got money to buy more?: Never true Do you have trouble paying for medicines?: No Do you have trouble getting transportation to medical appointments?: No Do you have trouble paying your heating and electricity bill?: No Do you have trouble taking care of your child, family member or friend?: No Do you have trouble with day-to-day activities such as bathing, preparing meals, shopping, managing finances, etc.?: No Are you currently unemployed and looking for a job?: No Are you interested in more education?: No Please select the resources that you would like help with: None Currently or been in a relationship where the following occur: no concerns reported THRIVE Score: 0 AUDIT C Alcohol Use Questionnaire (AUDIT-C) 1. How often do you have a drink containing alcohol?: Never 3. How often do you have six or more drinks on one occasion?: Never Total Score: 0 Score Reviewed/Action Taken: Yes COLEEN-7 AMB Questionnaire COLEEN-7 Date COLEEN - 7 assessed: 02/01/24 Feeling nervous, anxious, or on edge: 1 = Several days Not being able to stop or control worryin = Not at all Worrying too much about different things: 0 = Not at all Trouble relaxin = Not at all Being so restless that it is hard to sit still: 0 = Not at all Becoming easily annoyed or irritable: 0 = Not at all Feeling afraid as if something awful might happen: 0 = Not at all Total COLEEN-7 score (0-4 normal; 5-9 mild; 10-14 moderate; 15-21 severe): 1 Source: Developed by Drs. Naun Ray, Anup Alvarado and colleagues, with an educational jose from [employer]. Review of Systems Const Denies chills, Denies fatigue, Denies fever(s), Denies headache(s), Denies malaise and Denies weakness Eyes Denies blurry vision, Denies change in vision, Denies irritation and Denies itchy eyes ENT Denies dysphagia, Denies dizziness, Denies otalgia, Denies headache(s), Denies nasal congestion, Denies neck pain, Denies odynophagia and Denies sore throat Card Denies chest pain, Denies rapid heart rate, Denies irregular heart rhythm, Denies palpitations and Denies dyspnea Resp Denies chest congestion, Denies cough, Denies dyspnea and Denies wheezing GI Denies abdominal pain, Denies bloating, Denies constipation, Denies dysphagia, Denies heartburn, Denies diarrhea, Denies nausea, Denies odynophagia and Denies vomiting Denies hematuria, Denies difficulty urinating, Denies dysuria, Denies urinary frequency and Denies urinary urgency Musc Denies back pain, Denies arthralgias, Denies joint swelling, Denies muscle weakness and Denies neck pain Skin/Breast Denies change in pigmentation, Denies lesions, Denies rash and Denies unusual bruising Neuro Denies dizziness, Denies headache(s), Denies paresthesias and Denies weakness Psych Reports as per HPI and Reports anxiety Endo Denies fatigue and Denies palpitations Aller/Immun Denies itchy eyes and Denies wheezing Physical exam (Primary Care) Vital Signs: Last Vital Signs BP 108/68 02/01/24 17:10 BMI result Body Mass Index 29.4 Tobacco/Smoking Status: Tobacco use Status Tobacco use date assessed 02/01/24 02/01/24 17:14 Patient Tobacco Use Status Never used Tobacco 02/01/24 17:14 e-Cigarette/Vaping Use Never Used 02/01/24 17:14 PHQ-9: PHQ-9 Score PHQ-9: Total score 0 02/01/24 17:43 Depression Screening Interpretation: Negative Thrive Assessment: Date of Thrive Assessment Date Thrive assessed 02/01/24 02/01/24 17:14 Currently or been in a relationship where the following occur: no concerns reported Const General: no acute distress, alert and awake Orientation/consciousness: patient oriented x3 HENMT Head: Yes normocephalic and Yes atraumatic Ears: external ears normal, TM's normal bilaterally and EAC's normal General nose exam: No nasal discharge present Face and sinus: Yes normal facial exam and Yes sinuses nontender Teeth and gingiva: dentition normal Throat: Yes posterior oropharynx normal and Yes tonsils normal (no TP congestion) Eyes Eyelids: Yes eyelids normal Conjunctivae: conjunctivae normal Pupils: Equal, round and reactive pupils present EOM: EOMs intact bilaterally Neck Neck: Yes no lymphadenopathy and Yes supple Thyroid: Thyroid normal Resp Auscultation: clear to auscultation bilaterally, no rales and no wheezes Cardio Rate: regular rate Rhythm: regular rhythm Heart sounds: no murmurs GI Palpation (GI): Soft to palpation, nontender and No hepatosplenomegaly present Auscultation: normal bowel sounds General: Yes no CVA tenderness Back/Spine/Pelvis Back: no CVA tenderness Thoracic/Lumbar Spine: thoracic and lumbar spine normal to inspection Skin Lesions: no lesions Rashes: no rashes Neuro General: patient oriented x3, moves all extremities, no focal motor deficits and CN's II-XI intact bilaterally Cranial nerves: Yes Equal, round and reactive pupils present Cognition (Neuro): normal cognition Gait exam (Neuro): Normal gait present Extrem General: Yes no clubbing, cyanosis or edema Assessment and Plan Assessment & Plan (1) Annual physical exam: Code(s): Z00.00 - Encounter for general adult medical examination without abnormal findings Plan: Check labs - labs have been ordered a few days ago and patient will go and get them done this coming weekend (2) Dyslipidemia: Code(s): E78.5 - Hyperlipidemia, unspecified Plan: Patient's fasting lipids were normal/at goal when last checked in August 2023 Reinforced low cholesterol diet (3) Vitamin D deficiency: Code(s): E55.9 - Vitamin D deficiency, unspecified Plan: Continue OTC Vitamin D3 2000 units QD Will recheck his Vitamin D level for follow up (4) Down's syndrome: Code(s): Q90.9 - Down syndrome, unspecified Plan: He is reportedly doing well with no acute behavioral issues (5) Anxiety: Code(s): F41.9 - Anxiety disorder, unspecified Plan: He is currently on Sertraline oral liquid solution at 40 mg daily dose but his mother thinks that this is not enough as his anxiety seems to be increased lately as evidenced by his recent behaviors Per his mother's request, will try increasing this up to 100 mg QD (6) Overweight (BMI 25.0-29.9): Code(s): E66.3 - Overweight Plan: Reinforced diet/exercise as tolerated/lose weight (7) Colon cancer screening: Code(s): Z12.11 - Encounter for screening for malignant neoplasm of colon Plan: As his mother was diagnosed with colon cancer at 45 yrs of age, this increases patient's own risks significantly and he should start screening earlier than recommended He is however, not able to swallow tablets in general and drinks very little fluids at a time and his mother does not feel like he is going to be able to complete the required colon prep for his actual colonoscopy and is looking for potential alternatives Have advised them that Cologuard testing is for people with AVERAGE risks for colon cancer, which obviously does not apply to patient Advised that I will go ahead and refer patient to GI (they requests Dr. Cerrato as that is who his mother goes to see) and have him see patient and then decide how to best go about this moving forward, whether it be with Cologuard testing or some other alternative forms of screening tests - referral to Dr. Cerrato done Plan Follow up in 6 months Orders: Referrals Gastroenterology Referral Z12.11 - Encounter for screening for malignant neoplasm of colon Medications: Changed From sertraline 40 mg (2 mL) PO DAILY 30 days 60 mL 5RF To sertraline 100 mg (5 mL) PO DAILY 30 days 150 mL 5RF Coding Level of Care Code Est Pt Prev Care [id number]([id number]) Diagnoses Annual physical exam Z00.00 Dyslipidemia E78.5 Vitamin D deficiency E55.9 Down's syndrome Q90.9 Anxiety F41.9 Overweight (BMI 25.0-29.9) E66.3 Colon cancer screening Z12.11
[2024-02-01 17:10] VITALS: BP 108/68; BMI 29.4
== END 2024-02-01 17:46 | disposition home or self-care (01) ==
PROVIDERS: PCP Internal Medicine; Visit Provider Internal Medicine
DX: Z00.00 Encounter for general adult medical examination without abnormal findings (principal); E78.5 Hyperlipidemia, unspecified; E55.9 Vitamin D deficiency, unspecified; Q90.9 Down syndrome, unspecified; F41.9 Anxiety disorder, unspecified
CPT/HCPCS: 99395

== ENCOUNTER 2024-02-05 08:57 | Outpatient (REF) | payer MEDICARE, MEDICAID, SELFPAY ==
[2024-02-05 09:12] LABS: MANUAL DIFF FLAG NO
[2024-02-05 09:28] LABS: Appearance Urine Clear; Basophils Absolute Auto 0.1 X10*3/uL (0.0-0.2); Color Urine Yellow; Eosinophils Absolute Auto 0.1 X10*3/uL (0.0-0.4); Eosinophils Percent Auto 2.3 % (0-4); Glucose Urine UA Negative (Negative); Hematocrit 42.6 % (42.0-52.0); Hemoglobin 14.6 g/dl (14.0-18.0); Imm Gran Abs Auto 0.02 X10*3/uL (0.00-0.03); Imm Gran Pct Auto 0.4 % (0.0-0.4); Leukocyte Esterase Urine Negative (Negative); Lymphocytes Absolute Auto 1.2 X10*3/uL (1.2-4.9); Lymphocytes Percent Auto 24.6 % (20-40); Mean Corpuscular HGB Conc 34.3 g/dl (31.0-36.0); Mean Corpuscular Hemoglobin 32.9 pg (27.0-33.0); Mean Corpuscular Volume 95.9 fL (80.0-98.0); Mean Platelet Volume 10.1 fL (9.4-12.4); Monocytes Absolute Auto 0.5 X10*3/uL (0.1-1.2); Monocytes Percent Auto 9.3 % (2-11); Neutrophils Percent Auto 62.4 % (45-73); Nitrite Urine Negative (Negative); Platelet Count 178 X10*3/uL (160-400); Red Blood Count 4.44 X10*6/uL (4.60-5.80); Red Cell Distribution Width 12.5 % (11.0-16.0); Urine Blood Negative (Negative); Urine Ketones Negative (Negative); Urine Protein Negative (Neg-Trace); White Blood Count 4.8 X10*3/uL (4.8-10.8)
[2024-02-05 10:30] LABS: Alanine Aminotransferase 11 U/L (0-40); Albumin Level 3.7 g/dL (3.5-5.0); Alkaline Phosphatase 75 U/L (39-117); Anion Gap 15 (12-20); Aspartate Amino Transferase 17 U/L (5-37); Bilirubin Total 0.6 mg/dL (0.0-1.0); Blood Urea Nitrogen 14 mg/dL (9-16); Calcium 9.1 mg/dL (8.4-10.2); Carbon Dioxide 26 mmol/L (22-29); Chloride 105 mmol/L (96-108); Cholesterol 168 mg/dL (<200); Estimated Glomerular Filt Rate > 60; Glucose Fasting 84 mg/dL (60-99); HDL Cholesterol 44 mg/dL (>40); LDL Cholesterol Calculated 107 mg/dL (<100); Sodium 142 mmol/L (135-145); TSH reflex Free T4 2.29 uIU/mL (0.32-4.0); Total Protein 7.4 g/dL (6.5-8.0); Triglycerides 88 mg/dL (<150); Vitamin D 25-OH Total 29.3 ng/mL (>30)
== END 2024-02-05 08:58 | disposition home or self-care (01) ==
LOC: HO.LAB 08:57
PROVIDERS: PCP Internal Medicine; Visit Provider Internal Medicine
DX: E78.00 Pure hypercholesterolemia, unspecified (principal); Z00.00 Encounter for general adult medical examination without abnormal findings; R30.0 Dysuria; D64.9 Anemia, unspecified; E55.9 Vitamin D deficiency, unspecified
CPT/HCPCS: 36415; 80053; 80061; 81003; 82306; 84443; 85025

== ENCOUNTER 2024-07-25 16:47 | Outpatient (AMB) | payer MEDICARE, MEDICAID, SELFPAY ==
[2024-07-25 17:01] VITALS: BP 122/80; PULSE 69; O2SAT 98; BMI 31.6
--- NOTE | 2024-07-25 17:01 | A.OFFPC_ITS ---
Vital Signs 07/25/24 17:01 Height 5 ft 3 in Weight 178 lb 4 oz BMI 31.6 BP 122/80 Blood Pressure Location Lt brachial Position Sitting Pulse 69 Pulse Source Pulse Oximeter Pulse Oximetry (%) 98 Oxygen Delivery Method Room Air Intake Visit Reasons: 6 month f/u Tool Clerk Required: No Accompanied by: Self / Same As Patient Allergies No Known Allergies Allergy (Mild, Verified 07/25/24 17:22) NKA Medication List - Last Reconciled 07/25/24 by Royal Kearney MD sertraline 100 mg (5 mL) PO DAILY 30 days Tobacco use date assessed: 07/25/24 Dental Screening Dental Screen Date: 07/25/24 Did you have a dental visit in the last 12 months?: Yes Did you have a dental problem in the last 6 months where you did not have access to dental care?: No Was dental information given to patient?: Patient has dentist HPI 6 month f/u HPI Details Patient comes in today for his follow-up visit States that he feels okay He denies any headaches or dizziness Denies any chest pains, no shortness of breath No nausea/vomiting, no abdominal pain No change in bowel habits noted Would like to know how he did on his labs done back in 02/21/2024 [facility] Medical History (Updated 07/26/24 @ 03:49 by Royal Kearney MD) Obesity (BMI 30-39.9) Anxiety Vitamin D deficiency Dyslipidemia Down's syndrome Surgical History H/O: knee surgery History of cholecystectomy Family History Father Medical history unknown Mother Colon cancer, Onset Age: 45 Social History Housing: House Alcohol intake: never Patient Tobacco Use Status: Never used Tobacco e-Cigarette/Vaping Use: Never Used Second Hand Smoke Exposure: No service: No Current occupational status: disabled Cognitive needs: Yes Hearing needs: No Vision needs: No Questionnaire PHQ-9 Over the last 2 weeks, how often have you been bothered by any of the following problems? 1. Little interest or pleasure in doing things: not at all 2. Feeling down, depressed, or hopeless: not at all 3. Trouble falling or staying asleep, or sleeping too much: not at all 4. Feeling tired or having little energy: not at all 5. Poor appetite or overeating: not at all 6. Feeling bad about yourself - or that you are a failure or have let yourself or your family down: not at all 7. Trouble concentrating on things, such as reading the newspaper or watching television: not at all 8. Moving or speaking so slowly that other people could have noticed. Or the opposite - being so fidgety or restless that you have been moving around a lot more than usual: not at all 9. Thoughts that you would be better off or of hurting yourself in some way: not at all Total score: 0 Depression Screening Interpretation: Negative (is on Rx) Depression Screening Done: Yes 94706 - PHQ-9 Billing: Yes Source: Developed by Drs. Naun Ray, Katalina Nicole, Anup Franco and colleagues, with an educational jose from [employer]. Thrive Questionnaire Date Thrive assessed: 07/25/24 I am a: Parent/Caregiver What is your living situation today?: I have a steady place to live Within the past 12 months, did the food you bought not last and you didn't have the money to get more?: Never true Within the past 12 months, did you worry whether your food would run out before you got money to buy more?: Never true Do you have trouble paying for medicines?: No Do you have trouble getting transportation to medical appointments?: No Do you have trouble paying your heating and electricity bill?: No Do you have trouble taking care of your child, family member or friend?: No Do you have trouble with day-to-day activities such as bathing, preparing meals, shopping, managing finances, etc.?: No Are you currently unemployed and looking for a job?: No Are you interested in more education?: No Please select the resources that you would like help with: None Currently or been in a relationship where the following occur: No concerns reported THRIVE Score: 0 AUDIT C Alcohol Use Questionnaire (AUDIT-C) 1. How often do you have a drink containing alcohol?: Monthly or less 2. How many drinks containing alcohol do you have on a typical day when you are drinking?: 1 or 2 3. How often do you have six or more drinks on one occasion?: Never Total Score: 1 Score Reviewed/Action Taken: Yes COLEEN-7 AMB Questionnaire COLEEN-7 Date COLEEN - 7 assessed: 07/25/24 Feeling nervous, anxious, or on edge: 1 = Several days Not being able to stop or control worryin = Not at all Worrying too much about different things: 0 = Not at all Trouble relaxin = Not at all Being so restless that it is hard to sit still: 0 = Not at all Becoming easily annoyed or irritable: 0 = Not at all Feeling afraid as if something awful might happen: 0 = Not at all Total COLEEN-7 score (0-4 normal; 5-9 mild; 10-14 moderate; 15-21 severe): 1 Source: Developed by Drs. Naun Ray, Katalina Nicole, Anup Franco and colleagues, with an educational jose from [employer]. Review of Systems Const Denies chills, Denies fatigue, Denies fever(s) and Denies headache(s) ENT Denies dysphagia, Denies dizziness, Denies otalgia, Denies headache(s), Denies neck pain, Denies odynophagia and Denies sore throat Card Denies chest pain, Denies palpitations and Denies dyspnea Resp Denies chest congestion, Denies cough and Denies dyspnea GI Denies abdominal pain, Denies constipation, Denies dysphagia, Denies heartburn, Denies diarrhea, Denies nausea, Denies odynophagia and Denies vomiting Denies dysuria, Denies nocturia and Denies urinary frequency Musc Denies back pain and Denies neck pain Skin/Breast Denies rash Neuro Denies dizziness and Denies headache(s) Psych Reports anxiety Endo Denies fatigue and Denies palpitations Physical exam (Primary Care) Vital Signs: Last Vital Signs Pulse 69 07/25/24 17:01 BP 122/80 07/25/24 17:01 Pulse Ox 98 07/25/24 17:01 Oxygen Delivery Method Room Air 07/25/24 17:01 BMI result Body Mass Index 31.6 Tobacco/Smoking Status: Tobacco use Status Tobacco use date assessed 07/25/24 07/25/24 17:05 Patient Tobacco Use Status Never used Tobacco 07/25/24 17:05 e-Cigarette/Vaping Use Never Used 07/25/24 17:05 PHQ-9: PHQ-9 Score PHQ-9: Total score 0 07/25/24 17:23 Depression Screening Interpretation: Negative (is on Rx) Thrive Assessment: Date of Thrive Assessment Date Thrive assessed 07/25/24 07/25/24 17:05 Currently or been in a relationship where the following occur: No concerns repo rted Const General: no acute distress and alert HENMT Ears: TM's normal bilaterally and EAC's normal Throat: Yes posterior oropharynx normal and Yes tonsils normal (no TP congestion) Neck Neck: Yes no lymphadenopathy and Yes supple Thyroid: Thyroid normal Resp Auscultation: clear to auscultation bilaterally, no rales and no wheezes Cardio Rate: regular rate Rhythm: regular rhythm Heart sounds: no murmurs GI Palpation (GI): Soft to palpation and nontender Auscultation: normal bowel sounds General: Yes no CVA tenderness Back/Spine/Pelvis Back: no CVA tenderness Thoracic/Lumbar Spine: No lumbar spinal tenderness Skin Rashes: no rashes Extrem General: Yes no clubbing, cyanosis or edema Results Reviewed Results Reviewed: Laboratory Tests 02/05/24 09:11 WBC 4.8 Hgb 14.6 Hct 42.6 Plt Count 178 Sodium 142 Potassium 4.0 Creatinine 0.90 Estimated GFR > 60 Fasting Glucose 84 Calcium 9.1 AST 17 ALT 11 Triglycerides 88 Cholesterol 168 LDL Cholesterol, Calc 107 H HDL Cholesterol 44 25-OH Vitamin D Total 29.3 L TSH 2.29 Ur Specific [place] 1.020 Urine Protein Negative Urine Glucose (UA) Negative Urine Blood Negative Urine Nitrite Negative Ur Leukocyte Esterase Negative Coding Level of Care Code Est Pt Level 4 (58417) Diagnoses Dyslipidemia E78.5 Vitamin D deficiency E55.9 Down's syndrome Q90.9 Anxiety F41.9 Obesity (BMI 30-39.9) E66.9 Assessment & Plan Assessment & Plan (1) Dyslipidemia: Code(s): E78.5 - Hyperlipidemia, unspecified Category: Medical Plan: Results of his labs done back in February 2024 reviewed and discussed with patient and his mother Have advised them that patient's cholesterol levels were okay back then but they have increased slightly from his previous numbers Reinforced low cholesterol diet The rest of his labs are okay and will have patient recheck his labs and fasting lipids again in 6 months for follow-up (2) Vitamin D deficiency: Code(s): E55.9 - Vitamin D deficiency, unspecified Category: Medical Plan: Continue OTC Vitamin D3 2000 units QD (3) Down's syndrome: Code(s): Q90.9 - Down syndrome, unspecified Category: Medical Plan: Patient has been doing well with no acute behavioral issues (4) Anxiety: Code(s): F41.9 - Anxiety disorder, unspecified Category: Medical Plan: Continue Sertraline oral liquid solution at 100 mg QD - he is unable to swallow or tolerate tablets or capsule formulations (5) Obesity (BMI 30-39.9): Code(s): E66.9 - Obesity, unspecified Category: Medical Plan: Reinforced diet/exercise as tolerated/lose weight Patient has been advised that he has gained a lot of weight since his last visit and should work on keeping his weight in check Plan To return in 6 months for his next annual physical examination Orders: Orders Complete Blood Count Auto Diff 6 Months D64.9 - Anemia, unspecified, Z00.00 - Encounter for general adult medical examination without abnormal findings Lipid Panel 6 Months E78.00 - Pure hypercholesterolemia, unspecified, Z00.00 - Encounter for general adult medical examination without abnormal findings Comprehensive [place]. Panel Fast 6 Months E78.00 - Pure hypercholesterolemia, unspecified, Z00.00 - Encounter for general adult medical examination without abnormal findings TSH reflex Free T4 6 Months E78.00 - Pure hypercholesterolemia, unspecified, Z00.00 - Encounter for general adult medical examination without abnormal findings UA CC w/rflx Micro + Cult 6 Months R30.0 - Dysuria, Z00.00 - Encounter for general adult medical examination without abnormal findings Vitamin D 25-OH Total 6 Months E55.9 - Vitamin D deficiency, unspecified, Z00.00 - Encounter for general adult medical examination without abnormal findin gs
== END 2024-07-25 17:33 | disposition home or self-care (01) ==
PROVIDERS: PCP Internal Medicine; Visit Provider Internal Medicine
DX: E78.5 Hyperlipidemia, unspecified (principal); E55.9 Vitamin D deficiency, unspecified; E66.9 Obesity, unspecified; Z68.31 Body mass index [BMI] 31.0-31.9, adult; Q90.9 Down syndrome, unspecified; F41.9 Anxiety disorder, unspecified

== ENCOUNTER → 2024-07-25 16:47 | Outpatient (BNVA) | payer MEDICARE, MEDICAID, SELFPAY | PROVIDERS: PCP Internal Medicine; Visit Provider Internal Medicine | DX: E78.5 Hyperlipidemia, unspecified (principal); E55.9 Vitamin D deficiency, unspecified; F41.9 Anxiety disorder, unspecified; E66.9 Obesity, unspecified; Z68.31 Body mass index [BMI] 31.0-31.9, adult; Q90.9 Down syndrome, unspecified; Z79.899 Other long term (current) drug therapy | CPT/HCPCS: 96127; 99212 ==

== ENCOUNTER 2024-11-10 08:03 | Day surgery (SDC) | payer MEDICARE, MEDICAID, SELFPAY ==
--- OUTSIDE RECORDS SUMMARY | 2024-10-03 13:31 | XMS_ITS ---
Author Organization [facility] Address [address] [place] [address] Care Team Providers Care Soda Clerk Name Role Phone Caio SOSA, [place] Primary Care Provider Matthew Diana Jr Unavailable ALLERGIES No Known Allergies REASON FOR VISIT Patient presents today for a colon screening? MEDICATIONS Medication SIG (Take, Route, Frequency, Duration) Notes Start Date End Date Status MiraLax (colon prep) 17 GM/SCOOP mixed with Gatorade or Crystal Light Orally begin at 5:00 p.m. the day before the procedure for 1 day 09/04/2024 Active Sertraline HCl 20 MG/ML Oral for 84 Active SOCIAL HISTORY Tobacco Use: Social History Observation Description Date Details (start date - stop date) Never Smoker NA - NA Sex Assigned At : Social History Observation Description Sex Assigned At Unknown Tobacco Use/Smoking Question Answer Notes Patient is a nonsmoker Alcohol Screen Question Answer Notes Did you have a drink containing alcohol in the p ast year? No Points 0 Interpretation Negative PROBLEMS Problem Type ICD Code Onset Dates Problem Status W/U Status Risk SNOMED Code Notes Problem Abnormal CT scan, colon (R93.3) Active confirmed 458526008 Problem Colon cancer screening (Z12.11) Active confirmed 470487148 VITAL SIGNS BMI 36.54 kg/m2 09/04/2024 Blood pressure systolic 000 mm Hg 09/04/20 24 Blood pressure diastolic 00 mm Hg 024 Height 5 ft in 09/04/2024 Temperature 97.8 degrees Fahrenheit 09/04/20 24 Weight 187 lb 2 oz lbs 09/04/2024 Encounters Encounter Location Date Provider Diagnosis [facility] [address] [place] [address] 09/04/2024 Matthew Cerrato Jr Abnormal CT scan, colon R93.3 and Colon cancer screening Z12.11 ASSESSMENTS Encounter Date Diagnosis Assessment Notes Treatment Notes Treatment Clinical Notes 09/04/[address] scan, colon (ICD-10 - R93.3) Colonoscopy material was printed 09/04/2024 Colon cancer screening (ICD-10 - Z12.11) PLAN OF TREATMENT Medication Medication Name Sig Start Date Stop Date Notes MiraLax (colon prep) 17 GM/SCOOP mixed with Gatorade or Crystal Light Orally begin at 5:00 p.m. the day before the procedure for 1 day 09/04/2024 Treatment Notes Assessment Notes Abnormal CT scan, colon Colonoscopy mate rial was printed Future Test Test Name Order Date COLONOSCOPY 09/04/2024 Next Appt Details Follow Up: 1 Year, Reason: Provider Name:Matthew tobin Jr, 11/10/2024 09:10:00 AM, [address] [place] [address] , [place], [place], [phone], Progress Notes * Examination Category Sub-Category Detail Notes General Examination GENERAL APPEARANCE: in no ac sheron distress HEAD: normocephalic EYES: sclera non-icteric NECK/THYROID: no lymphadenopathy HEART: S1, S2 normal, no mu rmurs CHEST: normal shape and exp ansion LUNGS: clear to auscultatio n bilaterally ABDOMEN: soft, nontender, non distended, bowel sounds present, no organomegaly SKIN: anicteric EXTREMITIES: no clubbing, cyanosi s, or edema PSYCH: cognitive function i ntact ORAL CAVITY: mucosa moist
--- OUTSIDE RECORDS SUMMARY | 2024-10-03 13:32 | XMS_ITS ---
Author Organization [facility] Address [address] [place] [address] Care Team Providers Care Vice President Of Software Engineering Name Role Phone Caio SOSA, [place] Primary Care Provider Unajamie Cerrato Jr, Matthew Unavailable [phone] REASON FOR VISIT Patient presents today for a colon screening Encounters Encounter Location Date Provider Diagnosis [facility] [address] [facility] [address] [place] [phone] 06/12/2024 Matthew Cerrato Jr PLAN OF TREATMENT Next Appt Details Provider Name:Matthew tobin Jr, 11/10/2024 09:10:00 AM, [address] [facility] , [place], [place], [phone],
--- OUTSIDE RECORDS SUMMARY | 2024-10-03 13:32 | XMS_ITS ---
Author Organization [facility] Address [address] [place] [address] Care Team Providers Care Chief Quality Officer Name Role Phone Caio SOSA, [place] Primary Care Provider Matthew Diana Jr Unavailable [phone] Naun Macdonald Unavailable [phone] REASON FOR VISIT patient's mother Encounters Encounter Location Date Provider Diagnosis [facility] [address] [place] [phone] 02/04/2024 Naun Macdonald PLAN OF TREATMENT Next Appt Details Provider Name:Matthew tobin Jr, 11/10/2024 09:10:00 AM, [address] [facility] , [place], [place], [phone],
--- OUTSIDE RECORDS SUMMARY | 2024-10-03 13:32 | XMS_ITS | Patient Health Record ---
Author Organization [facility] Address [address] [place] [address] Care Team Providers Care Senior Java Web Application Developer Name Role Phone Caio SOSA, [place] Primary Care Provider Matthew Diana Jr Unavailable [phone] Naun Macdonald Unavailable [phone] ALLERGIES No Known Allergies REASON FOR REFERRAL No Information MEDICATIONS Medication SIG (Take, Route, Frequency, Duration) Notes Start Date End Date Status MiraLax (colon prep) 17 GM/SCOOP mixed with Gatorade or Crystal Light Orally begin at 5:00 p.m. the day before the procedure for 1 day 09/04/2024 Active Sertraline HCl 20 MG/ML Oral for 84 Active IMMUNIZATIONS Vaccine Route Administration Date Status Comme nts Influenza Unknown 08/14/2024 Administered SOCIAL HISTORY Tobacco Use: Social History Observation [...] Abnormal CT scan, colon (R93.3) Active confirmed 559826693 Problem Colon cancer screening (Z12.11) Active confirmed [id number] VITAL SIGNS Temperature 97.8 degrees Fahrenheit 09/04/2024 Blood pressure diastolic 00 mm Hg 09/04/2024 Height 5 ft in 09/04/2024 Blood pressure systolic 000 mm Hg 09/04/2024 Weight 187 lb 2 oz lbs 09/04/2024 BMI 36.54 kg/m2 09/04/2024 Encounters Encounter Location Date Provider Diagnosis [facility] [address] [place] [phone] 06/12/2024 Matthew Cerrato Jr [facility] [address] [place] [phone] 09/04/2024 Matthew Cerrato Jr Abnormal CT scan, colon R93.3 and Colon cancer screening Z12.11 [facility] [address] [place] [phone] 02/04/2024 Naun Macdonald ASSESSMENTS Encounter Date Diagnosis Assessment Notes Treatment Notes Treatment Clinical Notes 09/04/2024 Colon cancer screening (ICD-10 - Z12.11) 09/04/[address] scan, colon (ICD-10 - R93.3) Colonoscopy material was printed PLAN OF TREATMENT Future Test Test Name Order Date COLONOSCOPY 09/04/2024 Next Appt Details Provider Name:Matthew tobin Jr, 11/10/2024 09:10:00 AM, [address] [facility] , [place], [place], [phone], Insurance Providers Payer Name Payer Address Payer Phone Subscriber Number Group Number Insured Name Patient Relationship to Insured Coverage Start Date Coverage End Date MEDICARE OF [place] [address] AMA[place] DAVID [id number] OFELIA PORTER Self - patient is the insured MEDICAID OF [facility] [address] [place] [address] [phone] [id number] OFELIA PORTER Self - patient is the insured MEDICAL (GENERAL) HISTORY Medical History History ICD Code Elevated body mass index Down syndrome Hyperlipidemia Anxiety Vitamin D deficiency Surgical History Surgery Date(Month/Year) Cholecystectomy Knee surgery
[2024-11-08 10:54] VITALS: BMI 36.5
[2024-11-08 11:09] VITALS: BMI 36.5
--- NOTE | 2024-11-09 09:02 | HO.ANESPROP2 ---
Documented by User: Amber Badillo NP 11/09/24 09:04 HPI - Anesthesia Eval Consult details Narrative: 39yo M for Colonoscopy PMFSH Active Problems Active Problems: All Active Problems Colon cancer screening (Acute) Overweight (BMI 25.0-29.9) (Acute) Abdominal pain (Acute) Toe pain, left (Acute) Left foot pain (Acute) Upper respiratory tract infection (Acute) Annual physical exam (Acute) Anxiety (Acute) Vitamin D deficiency (Acute) Dyslipidemia (Acute) Down's syndrome (Acute) Obesity (BMI 30-39.9) (Acute) Past Medical History Medical History Anxiety Vitamin D deficiency Dyslipidemia Down's syndrome Obesity (BMI 30-39.9) Family History Family History Father Medical history unknown Mother Colon cancer, Onset Age: 45 Surgical History Surgical History H/O: knee surgery History of cholecystectomy Social History Social History Household Members Other:: mother Housing: House Are you a primary health and social care teacher to a significant other at home: No Do you presently have visiting nurse or other home services: No Alcohol intake: never Patient Tobacco Use Status: Never used Tobacco e-Cigarette/Vaping Use: Never Used Second Hand Smoke Exposure: No Use of substances other than those prescribed or required for medical reasons: No Have you been hit, kicked, punched, or otherwise hurt by someone within the past year? If so, by whom?: No Spiritual Healthcare Practices: none Orthodox Healthcare Practices: Worship Cultural Healthcare Practices: none Advance Directives Information Provided: Yes (as above noted) Recently lost weight without trying: No Eating poorly because of decreased appetite: No Nutrition Risks: No Nutritional Risk Poor oral hygiene: No (missing teeth upper front) service: No Current occupational status: disabled Cognitive needs: Yes Hearing needs: No Vision needs: No Meds Allergies Allergy/AdvReac Type Severity Reaction Status Date / Time No Known Allergies Allergy Mild NKA Verified 11/10/24 08:25 Exam Height,Weight and Vital Signs: Height 5 ft Weight 84.878 kg Assessment and Plan Assessment Anesthesia Assessment: Chart Reviewed Documented by User: Sally Wilde MD 11/10/24 09:12 HPI - Anesthesia Eval Consult details Narrative: 39yo M for Colonoscopy Down's syndrome PMFSH Active Problems Active Problems: All Active Problems Colon cancer screening (Acute) Overweight (BMI 25.0-29.9) (Acute) Abdominal pain (Acute) Toe pain, left (Acute) Left foot pain (Acute) Annual physical exam (Acute) Anxiety (Acute) Vitamin D deficiency (Acute) Dyslipidemia (Acute) Down's syndrome (Acute) Obesity (BMI 30-39.9) (Acute) Past Medical History Medical History Anxiety Vitamin D deficiency Dyslipidemia Down's syndrome Obesity (BMI 30-39.9) Family History Family History Father Medical history unknown Mother Colon cancer, Onset Age: 45 Family history of problems with anesthesia: No Surgical History Surgical History H/O: knee surgery History of cholecystectomy History of Problems with Anesthesia: No Social History Social History Household Members Other:: mother Housing: House Are you a primary health and social care teacher to a significant other at home: No Do you presently have visiting nurse or other home services: No Alcohol intake: never Patient Tobacco Use Status: Never used Tobacco e-Cigarette/Vaping Use: Never Used Second Hand Smoke Exposure: No Use of substances other than those prescribed or required for medical reasons: No Have you been hit, kicked, punched, or otherwise hurt by someone within the past year? If so, by whom?: No Spiritual Healthcare Practices: none Orthodox Healthcare Practices: Worship Cultural Healthcare Practices: none Advance Directives Information Provided: Yes (as above noted) Recently lost weight without trying: No Eating poorly because of decreased appetite: No Nutrition Risks: No Nutritional Risk Poor oral hygiene: No (missing teeth upper front) service: No Current occupational status: disabled Cognitive needs: Yes Hearing needs: No Vision needs: No Meds Allergies Allergy/AdvReac Type Severity Reaction Status Date / Time No Known Allergies Allergy Mild NKA Verified 11/10/24 08:25 Exam Height,Weight and Vital Signs: Height 5 ft Weight 84.878 kg Vital Signs Temp Pulse Resp BP Pulse Ox O2 Del Method 11/10/24 08:26 97.4 F 65 16 113/79 98 Room Air Airway Mallampati Class: III TM Dist: >3cm Neck ROM: Full Loose/Missing/Broken Teeth: Yes (Several missing. 2 broken teeth top front. Overlapping bottom teeth. Denies loose teeth) Heart: RRR Lungs: CTAB Assessment and Plan Assessment Anesthesia Assessment: Anesthesia Plan Discussed and Chart Reviewed Final Anesthetic Review Family History of Problems with Anesthesia: No History of Problems with Anesthesia: No NPO: Yes ASA Class: III Final Preanesthetic Review: No Changes in Pt Med Stat, Meds/Allgs Chart Reviewed, Consent Obtained/Reviewed and Anes Risks/Benef Reviewed Patient Risk: Intermediate Procedure Risk: Low Assessment/Block/Sedation in SS: Assess/Block/Sedation-SS Anesthetic Plan Anesthetic Plan: TIVA Disposition: Standard PACU
--- OUTSIDE RECORDS SUMMARY | 2024-11-10 08:10 | XMS_ITS | Patient Health Record ---
Author Organization [facility] Address [address] [place] [address] Care Team Providers Care Paginator Name Role Phone Caio SOSA, [place] Primary Care Provider Matthew Diana Jr Unavailable Naun Macdonald Unavailable [phone] ALLERGIES No Known Allergies REASON FOR REFERRAL [...] Abnormal CT scan, colon (R93.3) Active confirmed 648067790 Problem Colon cancer screening (Z12.11) Active confirmed [id number] VITAL SIGNS Temperature 97.8 degrees Fahrenheit 09/04/2024 Blood pressure diastolic 00 mm Hg 09/04/2024 Height 5 ft in 09/04/2024 Blood pressure systolic 000 mm Hg 09/04/2024 Weight 187 lb 2 oz lbs 09/04/2024 BMI 36.54 kg/m2 09/04/2024 Encounters Encounter Location Date Provider Diagnosis [facility] Outpatient [address] [place], [place] [phone] 11/10/2024 Matthew Cerrato Jr [facility] [address] [place] [phone] 06/12/2024 Matthew Cerrato Jr [facility] [address] [place] [phone] 09/04/2024 Matthew Cerrato Jr Abnormal CT scan, colon R93.3 and Colon cancer screening Z12.11 [facility] [address] [place] [address] 02/04/2024 Naun Macdonald ASSESSMENTS Encounter Date Diagnosis Assessment Notes Treatment Notes Treatment Clinical Notes 09/04/2024 Colon cancer screening (ICD-10 - Z12.11) 09/04/[address] scan, colon (ICD-10 - R93.3) Colonoscopy material was printed PLAN OF TREATMENT Future Test Test Name Order Date COLONOSCOPY 09/04/2024 Next Appt Details Provider Name:Matthew tobin Jr, 11/10/2024 09:10:00 AM, [address] [facility] , [place], [place], [phone], Insurance Providers Payer Name Payer Address Payer Phone Subscriber Number Group Number Insured Name Patient Relationship to Insured Coverage Start Date Coverage End Date MEDICARE OF [place] [address] [place] DAV[place] [id number] OFELIA PORTER Self - patient is the insured MEDICAID OF [facility] [address] [place] [address] [id number] OFELIA PORTER Self - patient is the insured MEDICAL (GENERAL) HISTORY Medical History History ICD Code Elevated body mass index Down syndrome Hyperlipidemia Anxiety Vitamin D deficiency Surgical History Surgery Date(Month/Year) Cholecystectomy Knee surgery
--- OUTSIDE RECORDS SUMMARY | 2024-11-10 08:10 | XMS_ITS ---
Author Organization [facility] Address [address] [place] [address] Care Team Providers Care Assembly Associate Name Role Phone Caio SOSA, [place] Primary Care Provider Unajamie Cerrato Jr, Matthew Unavailable REASON FOR VISIT Patient presents today for a colon screening Encounters Encounter Location Date Provider Diagnosis [facility] [address] [facility] [address] [place] [phone] 06/12/2024 Matthew Cerrato Jr PLAN OF TREATMENT Next Appt Details Provider Name:Matthew tobin Jr, 11/10/2024 09:10:00 AM, [address] [facility] , [place], [place], [phone],
--- OUTSIDE RECORDS SUMMARY | 2024-11-10 08:10 | XMS_ITS ---
Author Organization [facility] Address [address] [place] [address] Care Team Providers Care Applications Consultant Name Role Phone Caio SOSA, [place] Primary Care Provider Matthew Diana Jr [...] Abnormal CT scan, colon (R93.3) Active confirmed 450282014 Problem Colon cancer screening (Z12.11) Active confirmed [id number] VITAL SIGNS BMI 36.54 kg/m2 09/04/2024 Blood pressure systolic 000 mm Hg 09/04/20 24 Blood pressure diastolic 00 mm Hg 024 Height 5 ft in 09/04/2024 Temperature 97.8 degrees Fahrenheit 09/04/20 24 Weight 187 lb 2 oz lbs 09/04/2024 Encounters Encounter Location Date Provider Diagnosis [facility] [address] [place] [address] 09/04/2024 Matthew Cerrato Jr Abnormal CT scan, [...] Provider Name:Matthew tobin Jr, 11/10/2024 09:10:00 AM, [address] [place] [address] , [place], [place], [phone], Progress Notes * Examination Category Sub-Category Detail Notes General Examination GENERAL APPEARANCE: in no ac [place] distress HEAD: normocephalic EYES: sclera non-icteric NECK/THYROID: no lymphadenopathy HEART: S1, S2 normal, no mu rmurs CHEST: normal shape and exp ansion LUNGS: clear to auscultatio n bilaterally ABDOMEN: soft, nontender, non distended, bowel sounds present, no organomegaly SKIN: anicteric EXTREMITIES: no clubbing, cyanosi s, or edema PSYCH: cognitive function i ntact ORAL CAVITY: mucosa moist
--- OUTSIDE RECORDS SUMMARY | 2024-11-10 08:10 | XMS_ITS ---
Author Organization [facility] Address [address] [place] [address] Care Team Providers Care Hot Mill Supervisor Name Role Phone Caio SOSA [place] Primary Care Provider Unava ysabel Cerrato Jr, Matthew Tripathi REASON FOR VISIT screening,abnormal ct scan of colon Encounters Encounter Location Date Provider Diagnosis [facility] Outpatient [address] [place] [phone] 11/10/2024 Matthew Cerrato Jr PLAN OF TREATMENT Next Appt Details Provider Name:Matthew tobin Jr, 11/10/2024 09:10:00 AM, [address] [place] [address] , [place], [place], [phone],
[2024-11-10 08:26] VITALS: BP 113/79; PULSE 65; RESP 16; TEMP 36.3; O2SAT 98
--- NOTE | 2024-11-10 09:11 | MHC.SHP ---
Pre-Procedural Eval Section A - 24 Hr Update-Section A only Date of Service: 11/10/24 Section B - Complete if H&P > 30 days Chief Complaint: Encounter for screening for malignant neoplasm of Details of Present Illness: see H&P no changes Relevant Family History (Specify if Yes): No Relevant Social History: None Present Medications: see Short Stay Collaborative assessment Medical History: No relevant PMH Allergies: Allergies Allergy/AdvReac Type Severity Reaction Status Date / Time No Known Allergies Allergy Mild NKA Verified 11/10/24 08:25 Review of Systems Sugical H&P ROS: Negative: Constitution, Cardiovascular, Respiratory, Neurological, Psychiatric, Hem-Onc, Allergic/Immunologic, Gastrointestinal, Genitourinary, Musculoskeletal, Integumentary, Endocrine and Eyes/Ears/Nose/Throat Exam Surgical H&P Exam: Normal: HEENT, Normal: Heart, Normal: Lungs, Normal: Extremities, Normal: Abdomen, Normal: Skin and Normal: Neurological Plan Diagnosis/Plan: Unchanged I have reviewed the history and physical and performed a pertinent physical examination on my patient. No changes have occurred unless specified. Time Spent With Patient Time: Total time managing care of this patient today ____ minutes.
[2024-11-10] MEDS: Lactated Ringers 1,000 ML 100 ML IVCONT (09:12)
[2024-11-10 09:43] VITALS: BP 84/57; PULSE 86; RESP 13; TEMP 36.2; O2SAT 98
--- NOTE | 2024-11-10 09:44 | PM.OP ---
Brief Operative Note Date of Service: 11/10/24 Pre-op diagnosis: screening Post-op diagnosis: same Procedure: colonoscopy Surgeon: Matthew Cerrato MD Anesthesia: MAC Was an Kiln Furniture Saw Tender used for this Procedure?: No Estimated blood loss (mL): 0 Pathology: none sent Condition: stable Disposition: PACU
[2024-11-10 09:58] VITALS: BP 98/65; PULSE 73; RESP 16; TEMP 36.2; O2SAT 100
--- NOTE | 2024-11-10 10:05 | OP_ITS ---
DATE OF SERVICE: 11/10/2024 SURGEON: Matthew Cerrato MD INDICATIONS: Colon cancer screening. PREOPERATIVE DIAGNOSIS: POSTOPERATIVE DIAGNOSIS: PROCEDURE PERFORMED: Colonoscopy to the terminal ilium. ESTIMATED BLOOD LOSS: COMPLICATIONS: ANESTHESIA: Monitored anesthesia care. ASSISTANTS: SPECIMENS: DESCRIPTION OF PROCEDURE: A history and physical was performed. The risks and benefits of the procedure were explained to the patient. Informed consent was obtained. The patient's mother was also advised of the risks and benefits of the procedure. He was placed in the left lateral decubitus position. A digital rectal exam was performed and was found to be normal. The Olympus pediatric video colonoscope was introduced into the rectum and advanced to the cecum. The cecum was identified by transillumination, palpation, and identification of ileocecal valve. Examination was performed. The scope was removed. He tolerated the procedure well and was returned to the recovery area in stable condition. FINDINGS: The terminal ileum was examined briefly and appeared normal. The visualized colonic mucosa was normal. The quality of the prep was good. No polyps were identified. Retroflexed examination showed some small internal hemorrhoids. IMPRESSION: Normal colonoscopy. RECOMMENDATION: 1. Follow up as needed. 2. Repeat colonoscopy is recommended in 10 years for average-risk individuals. MD SILVIANO Gerber/OLIVERL / [phone]
== END 2024-11-10 10:52 | disposition home or self-care (01) ==
PROVIDERS: PCP Internal Medicine; Visit Provider Internal Medicine Gastroenterology
PROC: 0DJD8ZZ Inspection of Lower Intestinal Tract, Via Natural or Artificial Opening Endoscopic (ICD-10-PCS; CPT 45378; principal; 2024-11-10 09:10)
DX: R93.3 Abnormal findings on diagnostic imaging of other parts of digestive tract (principal); Z12.11 Encounter for screening for malignant neoplasm of colon; Z80.0 Family history of malignant neoplasm of digestive organs; K64.8 Other hemorrhoids; Q90.9 Down syndrome, unspecified; F41.9 Anxiety disorder, unspecified; E78.5 Hyperlipidemia, unspecified; E55.9 Vitamin D deficiency, unspecified; Z79.899 Other long term (current) drug therapy; Z90.49 Acquired absence of other specified parts of digestive tract; Z98.890 Other specified postprocedural states
CPT/HCPCS: 45378; J2003; J2704

== ENCOUNTER 2025-02-02 16:40 | Outpatient (AMB) | payer MEDICARE, MEDICAID, SELFPAY ==
[2025-02-02 16:42] VITALS: BP 124/80; PULSE 87; TEMP 36.1; O2SAT 96; BMI 38.4
--- NOTE | 2025-02-02 16:42 | MHC.PC.OV ---
"Vital Signs 02/02/25 16:42 Height 5 ft Weight 196 lb 8 oz BMI 38.4 BP 124/80 Blood Pressure Location Lt brachial Position Sitting Pulse 87 Pulse Source Pulse Oximeter Temp 97 F Temp Source Skin Pulse Oximetry (%) 96 Oxygen Delivery Method Room Air Intake Visit Reasons: annual exam Garage Helper Required: No Accompanied by: Self / Same As Patient Allergies No Known Allergies Allergy (Mild, Verified 02/02/25 16:56) NKA Medication List - Last Reconciled 02/02/25 by Royal Kearney MD sertraline 100 mg (5 mL) PO DAILY 30 days Tobacco use date assessed: 02/02/25 Dental Screening Dental Screen Date: 02/02/25 Did you have a dental visit in the last 12 months?: Yes Did you have a dental problem in the last 6 months where you did not have access to dental care?: No Was dental information given to patient?: Patient has dentist HPI annual exam HPI Details Patient comes in today for his annual physical examination - is as usual, accompanied by his mother today His mother feels that patient's Sertraline is not really helping him much as she states that patient is often easily triggered by the slightest comment made to him and he continues to exhibit symptoms/tendencies of OCD behavior and anxiety He has not been seeing a therapist for a few years now as his last therapist at [facility] does not think that she is helping patient at all with their regular sessions as patient tends to have a habit of just going on and on about whatever he wants to talk about even though they may be completely off-topic and not at all related to his therapy sessions Patient states that he feels okay He denies any headaches or dizziness Denies any chest pains, no SOB No nausea/vomiting, no abdominal pain No change in bowel habits noted He denies any acute urinary symptoms Patient was not able to get his follow up labs done before his appointment today He has his screening colonoscopy done a couple of months ago on 11/10/[address] Cerrato - procedure was normal and he was recommended to get his repeat colonoscopy in 10 years (2034) [facility] Medical History Anxiety Vitamin D deficiency Dyslipidemia Down's syndrome Obesity (BMI 30-39.9) Surgical History (Updated 02/02/25 @ 17:12 by Royal Kearney MD) History of colonoscopy H/O: knee surgery History of cholecystectomy Family History Father Medical history unknown Mother Colon cancer, Onset Age: 45 Social History Household Members Other:: mother Housing: House Are you a primary vision care associate to a significant other at home: No Do you presently have visiting nurse or other home services: No Alcohol intake: never Patient Tobacco Use Status: Never used Tobacco e-Cigarette/Vaping Use: Never Used Second Hand Smoke Exposure: No service: No Current occupational status: disabled Cognitive needs: Yes Hearing needs: No Vision needs: No Questionnaire PHQ-9 Over the last 2 weeks, how often have you been bothered by any of the following problems? 1. Little interest or pleasure in doing things: several days 2. Feeling down, depressed, or hopeless: not at all 3. Trouble falling or staying asleep, or sleeping too much: not at all 4. Feeling tired or having little energy: not at all 5. Poor appetite or overeating: not at all 6. Feeling bad about yourself - or that you are a failure or have let yourself or your family down: not at all 7. Trouble concentrating on things, such as reading the newspaper or watching television: not at all 8. Moving or speaking so slowly that other people could have noticed. Or the opposite - being so fidgety or restless that you have been moving around a lot more than usual: not at all 9. Thoughts that you would be better off or of hurting yourself in some way: not at all Total score: 1 Depression Screening Interpretation: Negative Depression Screening Done: Yes 97432 - PHQ-9 Billing: Yes Source: Developed by Drs. Naun Ray, Katalina Nicole, Anup Franco and colleagues, with an educational jose from [employer] Anywhere. Thrive Questionnaire Date Thrive assessed: 02/02/25 I am a: Parent/Caregiver What is your living situation today?: I have a steady place to live Within the past 12 months, did the food you bought not last and you didn't have the money to get more?: Never true Within the past 12 months, did you worry whether your food would run out before you got money to buy more?: Never true Do you have trouble paying for medicines?: No Do you have trouble getting transportation to medical appointments?: No Do you have trouble paying your heating and electricity bill?: No Do you have trouble taking care of your child, family member or friend?: No Do you have trouble with day-to-day activities such as bathing, preparing meals, shopping, managing finances, etc.?: Yes Are you currently unemployed and looking for a job?: No Are you interested in more education?: No Please select the resources that you would like help with: None Currently or been in a relationship where the following occur: No concerns reported THRIVE Score: 0 AUDIT C Alcohol Use Questionnaire (AUDIT-C) 1. How often do you have a drink containing alcohol?: Never 3. How often do you have six or more drinks on one occasion?: Never Total Score: 0 Score Reviewed/Action Taken: Yes COLEEN-7 AMB Questionnaire COLEEN-7 Date COLEEN - 7 assessed: 02/02/25 Feeling nervous, anxious, or on edge: 3 = Nearly every day Not being able to stop or control worryin = Nearly every day Worrying too much about different things: 3 = Nearly every day Trouble relaxin = Several days Being so restless that it is hard to sit still: 0 = Not at all Becoming easily annoyed or irritable: 2 = More than half the days Feeling afraid as if something awful might happen: 1 = Several days Total COLEEN-7 score (0-4 normal; 5-9 mild; 10-14 moderate; 15-21 severe): 13 Source: Developed by Drs. Naun Ray, Katalina Nicole, Anup Franco and colleagues, with an educational jose from [employer] Anywhere. Review of Systems Const Denies chills, Denies difficulty sleeping, Denies fatigue, Denies fever(s), Denies headache(s), Denies malaise and Denies weakness Eyes Denies blurry vision, Denies change in vision, Denies irritation and Denies itchy eyes ENT Denies dysphagia, Denies dizziness, Denies otalgia, Denies headache(s), Denies nasal congestion, Denies neck pain, Denies odynophagia and Denies sore throat Card Denies rapid heart rate, Denies irregular heart rhythm, Denies palpitations and Denies dyspnea Resp Denies chest congestion, Denies cough, Denies dyspnea and Denies wheezing GI Denies abdominal pain, Denies bloating, Denies constipation, Denies dysphagia, Denies heartburn, Denies diarrhea, Denies nausea, Denies odynophagia and Denies vomiting Denies hematuria, Denies difficulty urinating, Denies dysuria, Denies urinary frequency and Denies urinary urgency Musc Denies back pain, Denies arthralgias, Denies joint swelling, Denies muscle weakness and Denies neck pain Skin/Breast Denies change in pigmentation, Denies lesions, Denies rash and Denies unusual bruising Neuro Denies dizziness, Denies headache(s), Denies paresthesias and Denies weakness Psych Reports as per HPI, Reports anxiety and Reports irritability (at times) Endo Denies fatigue and Denies palpitations Aller/Immun Denies itchy eyes and Denies wheezing Physical exam (Primary Care) Vital Signs: Last Vital Signs Temp 97 F 02/02/25 16:42 Pulse 87 02/02/25 16:42 BP 124/80 02/02/25 16:42 Pulse Ox 96 02/02/25 16:42 Oxygen Delivery Method Room Air 02/02/25 16:42 BMI result Body Mass Index 38.4 Tobacco/Smoking Status: Tobacco use Status Tobacco use date assessed 02/02/25 02/02/25 16:50 Patient Tobacco Use Status Never used Tobacco 02/02/25 16:50 e-Cigarette/Vaping Use Never Used 02/02/25 16:50 PHQ-9: PHQ-9 Score PHQ-9: Total score 1 02/02/25 17:00 Depression Screening Interpretation: Negative Thrive Assessment: Date of Thrive Assessment Date Thrive assessed 02/02/25 02/02/25 16:50 Currently or been in a relationship where the following occur: No concerns reported Const General: no acute distress, alert and awake Orientation/consciousness: patient oriented x3 HENMT Head: Yes normocephalic and Yes atraumatic Ears: external ears normal, TM's normal bilaterally and EAC's normal General nose exam: No nasal discharge present Face and sinus: Yes normal facial exam and Yes sinuses nontender Teeth and gingiva: dentition normal Throat: Yes posterior oropharynx normal and Yes tonsils normal (no TP congestion) Eyes Eyelids: Yes eyelids normal Conjunctivae: conjunctivae normal Pupils: Equal, round and reactive pupils present EOM: EOMs intact bilaterally Neck Neck: Yes no lymphadenopathy and Yes supple Thyroid: Thyroid normal Resp Auscultation: clear to auscultation bilaterally, no rales and no wheezes Cardio Rate: regular rate Rhythm: regular rhythm Heart sounds: no murmurs GI Palpation (GI): Soft to palpation, nontender and No hepatosplenomegaly present Auscultation: normal bowel sounds General: Yes no CVA tenderness Back/Spine/Pelvis Back: no CVA tenderness Thoracic/Lumbar Spine: thoracic and lumbar spine normal to inspection Skin Lesions: no lesions Rashes: no rashes Neuro General: patient oriented x3, moves all extremities, no focal motor deficits and CN's II-XI intact bilaterally Cranial nerves: Yes Equal, round and reactive pupils present Cognition (Neuro): normal cognition Gait exam (Neuro): Normal gait present Extrem General: Yes no clubbing, cyanosis or edema Coding Level of Care Code Est Pt Prev Care 40-64y(88684) Diagnoses Annual physical exam Z00.00 Dyslipidemia E78.5 Vitamin D deficiency E55.9 Down's syndrome Q90.9 Anxiety F41.9 Obesity (BMI 30-39.9) E66.9 Additional Codes PHQ-9 - 56360 - PHQ-9 Billing: Yes ([id number]) Assessment & Plan Assessment & Plan (1) Annual physical exam: Code(s): Z00.00 - Encounter for general adult medical examination without abnormal findings Category: Medical Plan: Patient is instructed to go and get his previously ordered labs done ANN-MARIE to complete his annual physical today He has his screening colonoscopy done a couple of months ago on 11/10/[address] Cerrato - procedure was normal and he was recommended to get his repeat colonoscopy in 10 years (2034) (2) Dyslipidemia: Code(s): E78.5 - Hyperlipidemia, unspecified Category: Medical Plan: Reinforced low cholesterol diet Patient will go and get his labs done to recheck his fasting lipids ANN-MARIE (3) Vitamin D deficiency: Code(s): E55.9 - Vitamin D deficiency, unspecified Category: Medical Plan: Continue OTC Vitamin D3 1999 units QD (4) Down's syndrome: Comment: large neck circumference Code(s): Q90.9 - Down syndrome, unspecified Category: Medical Plan: Patient has been doing well so far with no acute behavioral issues (5) Anxiety: Code(s): F41.9 - Anxiety disorder, unspecified Category: Medical Plan: Will increase his Sertraline oral liquid solution to 150 mg QD - he is on the liquid formulation as he is unable to swallow or tolerate tablets or capsules Will also try to refer him back to psychiatry at [facility] for further management (6) Obesity (BMI 30-39.9): Code(s): E66.9 - Obesity, unspecified Category: Medical Plan: Reinforced diet/exercise as tolerated/lose weight Plan Follow up in 6 months Orders: Referrals Psychiatry Referral F41.9 - Anxiety disorder, unspecified Medications: Changed From sertraline 100 mg (5 mL) PO DAILY 30 days 150 mL 1RF To sertraline 150 mg (7.5 mL) PO DAILY 30 days 225 mL 2RF"
--- OUTSIDE RECORDS SUMMARY | 2025-02-02 16:42 | XMS_ITS | Patient Health Record ---
Author Organization [facility] Address [address] [place] [address] Care Team Providers Care Crocodile Farmer Name Role Phone Caio SOSA, [place] Primary Care Provider Matthew Diana Jr Unavailable Naun Macdonald Unavailable [phone] Allergies No Known Allergies Reason For Referral No Information Medications Medication SIG (Take, Route, Frequency, Duration) Notes Start Date End Date Status MiraLax (colon prep) 17 GM/SCOOP mixed with Gatorade or Crystal Light Orally begin at 5:00 p.m. the day before the procedure for 1 day 09/04/2024 Active Sertraline HCl 20 MG/ML Oral for 84 Active Immunizations Vaccine Route Administration Date Status Comme nts Influenza Unknown 08/14/2024 Administered Social History Tobacco Use: Social History Observation Description Date Details (start date - stop date) Never Smoker NA - NA Tobacco Use/Smoking Question Answer Notes Patient is a nonsmoker Alcohol Screen Question Answer Notes Did you have a drink containing alcohol in the p ast year? No Points 0 Interpretation Negative Problems Problem Type SNOMED Code ICD Code Onset Dates Problem Status W/U Status Risk Notes Problem [id number] Colon cancer screening (Z12.11) Active confirmed Problem 031869151 Abnormal CT scan, colon (R93.3) Active confirmed Vital Signs Temperature 97.8 degrees Fahrenheit 09/04/2024 Blood pressure diastolic 00 mm Hg 09/04/2024 Height 5 ft in 09/04/2024 Blood pressure systolic 000 mm Hg 09/04/2024 Weight 187 lb 2 oz lbs 09/04/2024 BMI 36.54 kg/m2 09/04/2024 Encounters Encounter Location Date Provider Diagnosis [facility] Outpatient [address] [facility] [place] [phone] 11/10/2024 Matthew Cerrato Jr Colon cancer screening Z12.11 [facility] [address] [place] [address] 09/04/2024 Matthew Cerrato Jr Abnormal CT scan, colon R93.3 and Colon cancer screening Z12.11 [facility] [address] [place] [address] 02/04/2024 Naun Macdonald Assessments Encounter Date Diagnosis (ICD Code) Assessment Notes Treatment Notes Treatment Clinical Notes Section Notes 11/10/2024 Colon cancer screening (ICD-10 - Z12.11) 09/04/2024 Colon cancer screening (ICD-10 - Z12.11) We reviewed his records in detail today. We discussed options for further evaluation, based on his previous CT scan, and increased risk of colon cancer because of his strong family history. We reviewed options including stool DNA testing which is not recommended. We discussed colonoscopy including risks and benefits of the procedure. There is a concern regarding his ability to take the bowel prep, and we discussed coping strategies. We discussed doing the best we can. This is acceptable to the patient and his mother who is present for shared decision-making . They understand risks and benefits and agree to proceed. This will be arranged. 09/04/[address] scan, colon (ICD-10 - R93.3) Colonoscopy material was printed We reviewed his records in detail today. We discussed options for further evaluation, based on his previous CT scan, and increased risk of colon cancer because of his strong family history. We reviewed options including stool DNA testing which is not recommended. We discussed colonoscopy including risks and benefits of the procedure. There is a concern regarding his ability to take the bowel prep, and we discussed coping strategies. We discussed doing the best we can. This is acceptable to the patient and his mother who is present for shared decision-making . They understand risks and benefits and agree to proceed. This will be arranged. Plan Of Treatment Future Test Test Name Order Date COLONOSCOPY 09/04/2024 Insurance Providers Payer Name Payer Address Payer Phone Subscriber Number Group Number Insured Name Patient Relationship to Insured Coverage Start Date Coverage End Date MEDICARE OF [place] [address] [place] [address] [phone] [id number] OFELIA PORTER Self - patient is the insured MEDICAID OF [facility] [address] [place] [address] [id number] OFELIA PORTER Self - patient is the insured Medical (General) History Medical History History ICD Code Elevated body mass index Down syndrome Hyperlipidemia Anxiety Vitamin D deficiency Surgical History Surgery Date(Month/Year) Cholecystectomy Knee surgery
--- OUTSIDE RECORDS SUMMARY | 2025-02-02 16:42 | XMS_ITS ---
Author Organization [facility] Address [address] [place] [address] Care Team Providers Care Nurse Infection Control Name Role Phone Caio SOSA, [place] Primary Care Provider Matthew Diana Jr Unavailable Allergies No Known Allergies REASON FOR VISIT Patient presents today for a colon screening? Medications Medication SIG (Take, Route, Frequency, Duration) Notes Start Date End Date Status MiraLax (colon prep) 17 GM/SCOOP mixed with Gatorade or Crystal Light Orally begin at 5:00 p.m. the day before the procedure for 1 day 09/04/2024 Active Sertraline HCl 20 MG/ML Oral for 84 Active Social History Tobacco Use: Social History Observation [...] Problem Status W/U Status Risk Notes Problem 991140568 Abnormal CT scan, colon (R93.3) Active confirmed Problem 754211102 Colon cancer screening (Z12.11) Active confirmed Vital Signs Temperature 97.8 degrees Fahrenheit 09/04/20 24 Blood pressure systolic 000 mm Hg 09/04/20 24 Blood pressure diastolic 00 mm Hg 024 Height 5 ft in 09/04/2024 Weight 187 lb 2 oz lbs 09/04/2024 BMI 36.54 kg/m2 09/04/2024 Encounters Encounter Location Date Provider Diagnosis [facility] [address] [place] [address] 09/04/2024 Matthew Cerrato Jr Abnormal CT scan, colon R93.3 and Colon cancer screening Z12.11 Assessments Encounter Date Diagnosis (ICD Code) Assessment Notes Treatment Notes Treatment Clinical Notes Section Notes 09/04/[address] scan, colon (ICD-10 [...] to proceed. This will be arranged. 09/04/2024 Colon cancer screening (ICD-10 - Z12.11) [...] This will be arranged. Plan Of Treatment Medication Medication Name Sig Start Date Stop Date Notes MiraLax (colon prep) 17 GM/SCOOP mixed with Gatorade or Crystal Light Orally begin at 5:00 p.m. the day before the procedure for 1 day 09/04/2024 Treatment Notes Assessment Notes Abnormal CT scan, colon Colonoscopy mate kizzy was printed Future Test Test Name Order Date COLONOSCOPY 09/04/2024 Next Appt Details Follow Up: 1 Year, Reason: Progress Notes * JEFFERY PORTER WDOB: [birth year] (38 yo M)Acc No.[id number]:09/04/2024 Progress Notes Patient:?JEFFERY PORTER W Provider:?Matthew Cerrato MD :1985???Age:38 Y???Sex:Male Yair e:09/04/2024 Address:[address] [place] [address], [id number] Pcp:Royal Kearney MD Subjective: * Chief Complaints: * ???1. Patient presents today for a colon screening?. * HPI: ???New symptom(s):? Jeffery is a pleasant 38-year-old man seen today in consultation. He underwent CT scanning in September 2023 because of abdominal pain. This showed thickening of the wall of the rectum. Evaluation of the colon was limited due to under distention and wall thickening could not be ruled out elsewhere. He was seen in the emergency department at that time for syncope and treated with IV fluids. This was thought secondary to dehydration. ?Currently he has no complaints of rectal bleeding. He has had no recurrent abdominal or rectal pain. ?There is a family history of colon cancer. His mother was diagnosed with colon cancer at age 45. Jeffery has not undergone previous colonoscopy. * ROS:?General/Constitutional:?Change in appetite?denies.?Fatigue?denies.?ENT:?Patient denies?difficulty swallowing.?Respiratory:?Patient denies?shortness of breath.?Cardiovascular:?Patient denies?chest pain.?Gastrointestinal:?Comments?See HPI for details.?Genitourinary:?Difficulty urinating?denies.?Incontinence?denies.?Musculoskeletal:?Patient denies?muscle aches.?Skin:?Patient denies?pruritis.?Neurologic:?Patient denies?low back pain.?Psychiatric:?Patient denies?mental or physical abuse.? * Medical History:?Elevated dave dy mass index, Down syndrome, Hyperlipidemia, Anxiety, Vitamin D deficiency. * Surgical History:?Cholecyste ctomy , Knee surgery . * Family History:?Father: frank keller?Mother: alive, diagnosed with Colon cancer.? No family history of liver cancer. Dad's side uncle had colon cancer. * Social History:?Tobacco Use:?Tobacco Use/Smoking?Patient is a?nonsmoker.?Drugs/Alcohol:?Alcohol Screen?Did you have a drink containing alcohol in the past year??No,?Points?0,?Interpretation?Negative.?Miscellaneous:?Marital status: single. Occupation: unemployed. * Medications:?Taking Sertrali ne HCl 20 MG/ML Concentrate Oral , Medication List reviewed and reconciled with the patient * Allergies:?N.K.D.A. Objective: * Vitals:?Wt: 187 lb 2 oz, Ht: 5 ft, BMI:36.54 Index, BP: 000/00 mm Hg, Temp: 97.8. * Examination: ???General Examination: ?GENERAL APPEARANCE:?in no acute distress.?HEAD:?normocephalic.?EYES:?sclera non-icteric.?ORAL CAVITY:?mucosa moist.?NECK/THYROID:?no lymphadenopathy.?SKIN:?anicteric.?HEART:?S1, S2 normal, no murmurs.?LUNGS:?clear to auscultation bilaterally.?CHEST:?normal shape and expansion.?ABDOMEN:?soft, nontender, nondistended, bowel sounds present, no organomegaly .?EXTREMITIES:?no clubbing, cyanosis, or edema.?PSYCH:?cognitive function intact.? Assessment: * Assessment: 1.?Abnormal CT scan, colon - R93.3 (Primary)?2.?Colon cancer screening - Z12.11? We reviewed his records in [facility] today. We discussed options for further evaluation, [...] his mother who is present for shared decision-making. They understand risks and benefits and agree to proceed. This will be arranged. Plan: * Treatment: Notes: Colonoscopy material was printed??2.?Colon cancer screening?Procedure: COLONOSCOPY (Ordered for 09/04/2024)* sched for 11/10/24 at 9:10 amm acmiralax * Procedure Codes:?G9903 Pt sc rn tbco id as non user, G9745 DOC RSN FOR NOT SCREEN/REC F/U HBP * Preventive Medicine:? ??Counseling:?Care goal follow-up plan:?Above Normal BMI Follow-up?Giving encouragement to exercise,?BMI management provided?Yes.? * Follow Up:?1 Year * * Sign off status: Completed true * Provider:?Matthew Cerrato MD Date:?1 11/05/2023 Generated for Jena soares/Henok/Karishmaitting on:?02/02/2025 04:42 PM EDT History and Physical Notes * HPI (History of Present Illness) Category Sub-Category Detail Notes Category Not es New symptom(s) Jeffery is a pleasant 38-year-old man seen today in consultation. He underwent CT scanning in September 2023 because of abdominal pain. This showed thickening of the wall of the rectum. Evaluation of the colon was limited due to under distention and wall thickening could not be ruled out elsewhere. He was seen in the emergency department at that time for syncope and treated with IV fluids. This was thought secondary to dehydration. Currently he has no complaints of rectal bleeding. He has had no recurrent abdominal or rectal pain. There is a family history of colon cancer. His mother was diagnosed with colon cancer at age 45. Jeffery has not undergone previous colonoscopy. Examination Category Sub-Category Detail Notes Category Not es General Examination GENERAL APPEARANCE: in no acute di stress HEAD: normocephalic EYES: sclera non-icteric NECK/THYROID: no lymphadenopathy HEART: S1, S2 normal, no mu rmurs CHEST: normal shape and exp ansion LUNGS: clear to auscultatio n bilaterally ABDOMEN: soft, nontender, non distended, bowel sounds present, no organomegaly SKIN: anicteric EXTREMITIES: no clubbing, cyanosi s, or edema PSYCH: cognitive function i ntact ORAL CAVITY: mucosa moist
--- OUTSIDE RECORDS SUMMARY | 2025-02-02 16:43 | XMS_ITS ---
Author Organization [facility] Address [address] [place] [address] Care Team Providers Care Auger Press Operator Name Role Phone Caio SSOA, Royal Primary Care Provider Marissa Cerrato Jr, Matthew Tripathi REASON FOR VISIT Patient presents today for a colon screening Encounters Encounter Location Date Provider Diagnosis [facility] [address] [place] [address] 06/12/2024 Matthew Cerrato Jr Plan Of Treatment No Information Progress Notes * OFELIA PORTER WDOB: [birth year] (39 yo M)Acc No.[id number]:06/12/2024 Progress Notes Patient:?OFELIA PORTER Provider:?Matthew Cerrato MD :1985???Age:38 Y???Sex:Male Yair e:06/12/2024 Address:[address] [place], [place] [address] [facility] Pcp:Royal Kearney MD Subjective: * Chief Complaints: * ???1. Patient presents today for a colon screening. * Medical History:? Objective: * Vitals:? Assessment: Plan: * Treatment: * * The named appointment provid er may or may not be the originator of this progress note, and it is not deemed complete until electronically signed by the appointment provider. Sign off status: Pending * Provider:?Matthew Cerrato MD Date:?0 06/12/2024 Generated for Jena soares/Henok/eTransmitting on:?02/02/2025 04:42 PM EDT
== END 2025-02-02 17:09 | disposition home or self-care (01) ==
LOC: HO.HMCH 16:41
PROVIDERS: PCP Internal Medicine; Visit Provider Internal Medicine
DX: Z00.00 Encounter for general adult medical examination without abnormal findings (principal); Z68.38 Body mass index [BMI] 38.0-38.9, adult; E66.9 Obesity, unspecified; E78.5 Hyperlipidemia, unspecified; E55.9 Vitamin D deficiency, unspecified; Q90.9 Down syndrome, unspecified; F41.9 Anxiety disorder, unspecified

== ENCOUNTER → 2025-02-02 16:40 | Outpatient (BNVA) | payer MEDICARE, MEDICAID, SELFPAY | PROVIDERS: PCP Internal Medicine; Visit Provider Internal Medicine | DX: Z00.00 Encounter for general adult medical examination without abnormal findings (principal); E78.5 Hyperlipidemia, unspecified; E55.9 Vitamin D deficiency, unspecified; Q90.9 Down syndrome, unspecified; F41.9 Anxiety disorder, unspecified; E66.9 Obesity, unspecified; Z68.38 Body mass index [BMI] 38.0-38.9, adult; Z71.3 Dietary counseling and surveillance | CPT/HCPCS: 96127; 99396 ==

== ENCOUNTER 2025-02-03 09:09 | Outpatient (REF) | payer MEDICARE, MEDICAID, SELFPAY ==
--- OUTSIDE RECORDS SUMMARY | 2025-02-03 09:12 | XMS_ITS ---
Author Organization [facility] Address [address] [place] [address] Care Team Providers Care Macaroni Maker Name Role Phone Caio SOSA, Royal Primary Care Provider Matthew Diana Jr [phone] REASON FOR VISIT screening,abnormal ct scan of colon Encounters Encounter Location Date Provider Diagnosis [facility] Outpatient [address] [place], [place] [id number] 11/10/2024 Matthew Cerrato Jr Colon cancer screening Z12.11 Assessments Encounter Date Diagnosis (ICD Code) Assessment Notes Treatment Notes Treatment Clinical Notes Section Notes 11/10/2024 Colon cancer screening (ICD-10 - Z12.11) Plan Of Treatment No Information Progress Notes * OFELIA PORTER WDOB: [birth year] (39 yo M)Acc No.[id number]:11/10/2024 COLON WITH MAC Patient:?OFELIA PORTER Provider:?Matthew Cerrato MD :1985???Age:39 Y???Sex:Male Yair e:11/10/2024 Address:[address] [place], [place] [address] [facility] Pcp:Royal Kearney MD Subjective: * Chief Complaints: * ???1. Screening,abnormal ct scan of colon. * Medical History:? Objective: * Vitals:? Assessment: * Assessment: 1.?Colon cancer screening - Z12.11 (Primary)??? Plan: * Treatment: * Procedure Codes:?69628 DIAGN OSTIC COLONOSCOPY, 0528F RCMND FLW-UP 10 YRS DOCD * * The named appointment provid er may or may not be the originator of this progress note, and it is not deemed complete until electronically signed by the appointment provider. Sign off status: Pending * Provider:?Matthew Cerrato MD Date:?0 11/10/2024 Generated for Jena soares/Henok/Karishmaitting on:?02/03/2025 09:12 AM EDT
--- OUTSIDE RECORDS SUMMARY | 2025-02-03 09:12 | XMS_ITS ---
Author Organization [facility] Address [address] [place] [address] Care Team Providers Care Refractory Tile Helper Name Role Phone Caio SOSA, [place] Primary Care Provider Matthew Diana Jr Unavailable [...] Problem Status W/U Status Risk Notes Problem [id number] Abnormal CT scan, colon (R93.3) Active confirmed Problem [id number] Colon cancer screening (Z12.11) Active confirmed Vital Signs Temperature 97.8 degrees Fahrenheit 09/04/20 24 Blood pressure systolic 000 mm Hg 09/04/20 24 Blood pressure diastolic 00 mm Hg 024 Height 5 ft in 09/04/2024 Weight 187 lb 2 oz lbs 09/04/2024 BMI 36.54 kg/m2 09/04/2024 Encounters Encounter Location Date Provider Diagnosis [facility] [address] [place] [address] 09/04/2024 Matthew Cerrato Jr Abnormal CT scan, [...] JEFFERY PORTER WDOB: [birth year] (38 yo M)Acc No.[id number]:09/04/2024 Progress Notes Patient:?JEFFERY PORTER W Provider:?Matthew Cerrato MD :1985???Age:38 Y???Sex:Male Yair e:09/04/2024 Address:[address] [place] [address], [id number] Pcp:Royal Kearney MD Subjective: * Chief Complaints: [...] - Z12.11? We reviewed his records in [facility] today. We discussed options for further evaluation, [...] MD Date:?1 11/05/2023 Generated for Jena soares/Henok/Karishmaitting on:?02/03/2025 09:12 AM EDT History and Physical Notes * HPI (History of Present Illness) Category Sub-Category Detail Notes Category Not es New symptom(s) eJffery is a pleasant 38-year-old man seen today [...]
--- OUTSIDE RECORDS SUMMARY | 2025-02-03 09:13 | XMS_ITS ---
Author Organization [facility] Address [address] [place] [address] Care Team Providers Care Provider Network Analyst Name Role Phone Caio SOSA, Royal Primary Care Provider Marissa Cerrato Jr, Matthew Tripathi REASON FOR VISIT Patient presents today for a colon screening Encounters Encounter Location Date Provider Diagnosis [facility] [address] [place] [address] 06/12/2024 Matthew Cerrato Jr Plan Of Treatment No Information Progress Notes * OFELIA PORTER WDOB: [birth year] (39 yo M)Acc No.[id number]:06/12/2024 Progress Notes Patient:?OFELIA PORTER Provider:?Matthew Cerrato MD :1985???Age:38 Y???Sex:Male Yair e:06/12/2024 Address:[address] [place], [place] [address] [facility] Pcp:Royal Kearney MD Subjective: * Chief Complaints: [...] MD Date:?0 06/12/2024 Generated for Jena soares/Henok/eTransmitting on:?02/03/2025 09:13 AM EDT
--- OUTSIDE RECORDS SUMMARY | 2025-02-03 09:13 | XMS_ITS | Patient Health Record ---
Author Organization [facility] Address [address] [place] [address] Care Team Providers Care Maritime Guard Name Role Phone Caio SOSA, [place] Primary Care Provider Matthew Diana Jr Unavailable Naun Macdonald Unavailable [phone] Allergies No Known Allergies Reason For Referral [...] Problem Status W/U Status Risk Notes Problem [id number] Colon cancer screening (Z12.11) Active confirmed Problem 642808636 Abnormal CT scan, colon (R93.3) Active confirmed Vital Signs Temperature 97.8 degrees Fahrenheit 09/04/2024 Blood pressure diastolic 00 mm Hg 09/04/2024 Height 5 ft in 09/04/2024 Blood pressure systolic 000 mm Hg 09/04/2024 Weight 187 lb 2 oz lbs 09/04/2024 BMI 36.54 kg/m2 09/04/2024 Encounters Encounter Location Date Provider Diagnosis [facility] [place] [address] [place] [id number] 11/10/2024 Matthew Cerrato Jr Colon cancer screening Z12.11 [facility] [address] [place] [address] 09/04/2024 Matthew Cerrato Jr Abnormal CT scan, colon R93.3 and Colon cancer screening Z12.11 [facility] [address] [place] [address] 02/04/2024 Naun Macdonald Assessments Encounter Date Diagnosis [...] OF [address] [place] [address] [id number] OFELIA PORTER Self - patient is the insured MEDICAID OF [facility] [address] [place] [address] [id number] OFELIA PORTER Self - patient is the insured Medical (General) History Medical History History ICD Code Elevated body mass index Down syndrome Hyperlipidemia Anxiety Vitamin D deficiency Surgical History Surgery Date(Month/Year) Cholecystectomy Knee surgery
[2025-02-03 09:43] LABS: MANUAL DIFF FLAG NO
[2025-02-03 09:57] LABS: Basophils Absolute Auto 0.1 X10*3/uL (0.0-0.2); Basophils Percent Auto 1.7 % (0-2); Eosinophils Absolute Auto 0.1 X10*3/uL (0.0-0.4); Eosinophils Percent Auto 2.8 % (0-4); Hematocrit 41.9 % (42.0-52.0); Hemoglobin 14.2 g/dl (14.0-18.0); Imm Gran Abs Auto 0.01 X10*3/uL (0.00-0.03); Imm Gran Pct Auto 0.3 % (0.0-0.4); Lymphocytes Percent Auto 27.4 % (20-40); Mean Corpuscular HGB Conc 33.9 g/dl (31.0-36.0); Mean Corpuscular Hemoglobin 32.5 pg (27.0-33.0); Mean Corpuscular Volume 95.9 fL (80.0-98.0); Mean Platelet Volume 10.4 fL (9.4-12.4); Monocytes Absolute Auto 0.3 X10*3/uL (0.1-1.2); Monocytes Percent Auto 9.4 % (2-11); Neutrophils Absolute Auto 2.1 x10*3/uL (2.0-8.3); Neutrophils Percent Auto 58.4 % (45-73); Platelet Count 205 X10*3/uL (160-400); Red Blood Count 4.37 X10*6/uL (4.60-5.80); Red Cell Distribution Width 13.1 % (11.0-16.0); White Blood Count 3.5 X10*3/uL (4.8-10.8)
[2025-02-03 10:33] LABS: Appearance Urine Clear; Color Urine Yellow; Glucose Urine UA Negative (Negative); Leukocyte Esterase Urine Negative (Negative); Nitrite Urine Negative (Negative); PH 6.5 (5.0-9.0); Specific Gravity - Urine 1.025 (1.005-1.025); Urine Blood Negative (Negative); Urine Ketones Trace mg/dL (Negative); Urine Protein Negative (Neg-Trace)
[2025-02-03 10:57] LABS: Alanine Aminotransferase 30 U/L (0-40); Albumin Level 3.7 g/dL (3.5-5.0); Alkaline Phosphatase 74 U/L (39-117); Anion Gap 12 (12-20); Aspartate Amino Transferase 30 U/L (5-37); Bilirubin Total 0.5 mg/dL (0.0-1.0); Blood Urea Nitrogen 14 mg/dL (9-16); Calcium 8.9 mg/dL (8.4-10.2); Carbon Dioxide 30 mmol/L (22-29); Chloride 105 mmol/L (96-108); Cholesterol 200 mg/dL (<200); Estimated Glomerular Filt Rate > 60; Glucose Fasting 97 mg/dL (60-99); HDL Cholesterol 46 mg/dL (>40); LDL Cholesterol Calculated 134 mg/dL (<100); Potassium 3.8 mmol/L (3.3-5.1); Sodium 143 mmol/L (135-145); TSH reflex Free T4 2.36 uIU/mL (0.32-4.0); Total Protein 7.3 g/dL (6.5-8.0); Triglycerides 104 mg/dL (<150); Vitamin D 25-OH Total 26.8 ng/mL (>30)
== END 2025-02-03 09:10 | disposition home or self-care (01) ==
LOC: HO.LAB 09:09
PROVIDERS: PCP Internal Medicine; Visit Provider Internal Medicine
DX: Z00.00 Encounter for general adult medical examination without abnormal findings (principal); E78.00 Pure hypercholesterolemia, unspecified; R30.0 Dysuria; E55.9 Vitamin D deficiency, unspecified; D64.9 Anemia, unspecified
CPT/HCPCS: 36415; 80053; 80061; 81003; 82306; 84443; 85025